=== PATIENT | male | born 1965 | race American Indian/Alaskan Native ===

== ENCOUNTER 2021-04-14 13:08 | Inpatient (IN) | payer MEDICAID ==
--- NOTE | 2021-04-15 09:08 | History and Physical Report ---
GP History & Physical - History of Present Illness Date of admission: 04/15/21 Date of Examination: 04/15/21 Reason for Admission: Danger to self Chief Complaint: Suicidal ideation History of Present Illness: Basim Pierce is a 55 year old male who was admitted on 1012 for suicidal ideation with a plan to be non compliant with mediations. In my interview with the patient is calm and oriented. The patient reports ongoing depression for the past 20 years. He states "I called them because I needed help, I have been on the streets and no where to go." The patient denies any current suicidal /homicidal ideation. He admits having auditory hallucinations stating " voices telling me to take my life." He denies visual hallucinations. PAST PSYCHIATRIC HISTORY Diagnoses:Schizophrenia, Depression Suicide attempts or Self-harm behavior: Denies Prior psychiatric hospitalizations: Yes Substance Abuse history:Alcohol and Cocaine Previous psychiatric medications tried: Unknown Outpatient treatment: Yes PAST MEDICAL HISTORY: HTN, CHF, CAD, Afib, DM Family Psychiatric History: None reported or documented SOCIAL HISTORY Marital Status: Single Living Arrangements:Homeless Employment Status: Unemployed Access to guns/weapons: None reported Education: 6th grade History of Abuse: Unknown Legal History: Denies REVIEW OF SYSTEMS Constitutional: Negative for weight loss ENT: Negative for stridor Respiratory: Negative for cough or hemoptysis All other systems reviewed and are negative MENTAL STATUS EXAMINATION General Appearance and Behavior: Age appropriate, good hygiene, wearing appropriate clothes, fair eye contact Cooperation: Participating/engaged Psychomotor Behavior: Psychomotor normal Mood: "Depressed" Affect and affective range: Congruent to stated mood Thought Process: goal Directed Thought Content: Not suicidal Speech: normal tone and pace Suicidal Ideation:Denies Homicidal Ideation: Denies Hallucinations: Auditory Impulse Control: Questionable Insight and Judgment: Limited insight and fair judgment Memory: Normal Attention: Normal Orientation: Alert and oriented Assessment and Plan (1) Schizophrenia-F20.9 Current Visit: Yes Status: Acute Treatment Plan Patient admitted for inpatient psychiatric evaluation, medication adjustment and close monitoring The patient's behavior, mood, sleep and appetite will be closely monitored. Patient enrolled in individual and group therapeutic sessions and encouraged to attend. Patient provided with a safe and structured environment. Patient's physical health needs will be addressed by the Hospitalist. Hospitalist Consulted Labs including CBC, CMP, Lipid profile and Hemoglobin A1C levels ordered for baseline reference Social Assessment will be completed and the Joinery Patternmaker will work with patient and family to ensure a suitable and safe disposition Medication adjustment will be made as clinically indicated Continued Home medications Usual Wellness Alevism/Preservation: - Start Trazodone 50 mg po QHS & 50 mg po QHS PRN between 10 PM & 2 AM for insomnia - Start Melatonin 5 mg po QHS to promote circadian rhythm The patient agreed on the treatment plan, understood the risk, benefit, alternative treatment, potential consequence of no treatment, and gave informed consent. Estimated days: 7 Post hospital care: primary care provider, psychiatric provider Case staffed with Dr. March Reaction to Hospitalization: Accepting Legal Status: Voluntary Medications and Allergies Allergies Allergy/AdvReac Type Severity Reaction Status Date / Time No Known Allergies Allergy Unverified 04/15/21 05:52 Home Medications Medication Instructions Recorded Confirmed Last Taken Type Amiodarone [Cordarone 200 MG TAB] 200 mg PO BID 04/15/21 04/15/21 Unknown History Apixaban [Eliquis] 5 mg PO BID 04/15/21 04/15/21 Unknown History Aspirin 81 mg PO DAILY 04/15/21 04/15/21 Unknown History AtorvaSTATin [Lipitor] 40 mg PO QHS 04/15/21 04/15/21 Unknown History Divalproex [Mukund BERNABE] 250 mg PO BID 04/15/21 04/15/21 Unknown History Escitalopram [Lexapro] 10 mg PO DAILY 04/15/21 04/15/21 Unknown History Famotidine [Acid-Pep] 20 mg PO DAILY 04/15/21 04/15/21 Unknown History Fenofibrate 54 mg PO DAILY 04/15/21 04/15/21 Unknown History Ferrous Sulfate [Feosol 325 MG tab] 325 mg PO DAILY 04/15/21 04/15/21 Unknown History Furosemide [Lasix] 20 mg PO QDAY 04/15/21 04/15/21 Unknown History Gabapentin 300 mg PO TID 04/15/21 04/15/21 Unknown History Lisinopril [Zestril] 5 mg PO DAILY 04/15/21 04/15/21 Unknown History Melatonin [Melatonin 10MG TAB] 10 mg PO HS 04/15/21 04/15/21 Unknown History Metoprolol [Lopressor TAB] 50 mg PO BID 04/15/21 04/15/21 Unknown History Quetiapine Fumarate [SEROquel] 50 mg PO HS 04/15/21 04/15/21 Unknown History Trazodone HCl 50 mg PO HS 04/15/21 04/15/21 Unknown History busPIRone [Buspar] 7.5 mg PO BID 04/15/21 04/15/21 Unknown History glipiZIDE [Glucotrol] 5 mg PO QDAY 04/15/21 04/15/21 Unknown History Results - Results Labs/Vitals: Laboratory Last Values POC Glucose 287 mg/dL (70-105) H 04/15/21 06:08 Last Vital Signs Temp 98.5 F 04/15/21 03:55 Pulse 57 L 04/15/21 03:55 Resp 16 04/15/21 03:55 BP 117/60 04/15/21 03:55 Pulse Ox 98 04/15/21 03:55 Physical Examination - Constitutional Vitals: Vital Signs Temp Pulse Resp BP Pulse Ox 98.5 F 57 L 16 117/60 98 04/15/21 03:55 04/15/21 03:55 04/15/21 03:55 04/15/21 03:55 04/15/21 03:55 Temperature -Last 24 Hours Temperature 98.5 F Mental Status Exam - Vital signs Last Vital Signs Temp 98.5 F 04/15/21 03:55 Pulse 57 L 04/15/21 03:55 Resp 16 04/15/21 03:55 BP 117/60 04/15/21 03:55 Pulse Ox 98 04/15/21 03:55 Physician Certification - Certification Statement Physician Certification Statement: This is an acknowledgement statement that BASIM PIERCE is a 55 year old M who requires inpatient psychiatric admission for treatment which could reasonably be expected to improve the patient's condition for Estimated period of time patient will need to remain in the hospital: [ ] Plan for post-hospital care: [ ]
[2021-04-15] MEDS ORDERED: glipiZIDE 5 MG TAB PO SCH (10:00)
[2021-04-15] MEDS ORDERED: FENOFIBRATE 120 MG PO SCH (10:00)
[2021-04-15] MEDS ORDERED: busPIRone 10 MG TAB PO SCH (10:00)
[2021-04-15] MEDS ORDERED: NON-FORMULARY EACH (Aspirin Tablet) PO SCH (10:00)
[2021-04-15] MEDS ORDERED: ESCITALOPRAM 10 MG TAB PO SCH (10:00)
[2021-04-15] MEDS ORDERED: NON-FORMULARY EACH (Apixaban 5 MG Tablet) PO SCH (10:00)
[2021-04-15] MEDS: FERROUS SULFATE 325 MG TAB PO SCH (14:35)
[2021-04-15] MEDS: FAMOTIDINE 20 MG TAB PO SCH (14:36)
[2021-04-15] MEDS: FUROSEMIDE 20 MG TAB PO SCH (14:36)
[2021-04-15] MEDS: DIVALPROEX DR 250 MG TAB PO SCH ×2 (14:36→21:53)
[2021-04-15] MEDS: LISINOPRIL 5 MG TAB PO SCH (14:37)
[2021-04-15] MEDS: METOPROLOL TARTRATE 50 MG TAB PO SCH ×2 (14:37→21:55)
[2021-04-15] MEDS: GABAPENTIN 300 MG CAP PO SCH ×2 (14:37→21:52)
[2021-04-15] MEDS: ASPIRIN 81 MG TAB CHEW PO SCH (14:37)
[2021-04-15] MEDS: AMIODARONE 200 MG TAB PO SCH ×2 (14:38→21:53)
[2021-04-15] MEDS: INSULIN LISPRO 100 UNIT/ML SUB-Q SCH ×3 (14:40→22:32)
[2021-04-15 14:41] LABS: Alanine Aminotransferase 28 units/L (7-56); Albumin 4.1 g/dL (3.9-5); BUN/Creatinine Ratio 18; Blood Urea Nitrogen 30 mg/dL (9-20); Calcium 9.4 mg/dL (8.4-10.2); Chol/HDL Ratio 3.79 %; HDL Cholesterol 43 mg/dL (40-59); Hemolysis Index 2; LDL Cholesterol,Direct 104 mg/dL (50-130)
[2021-04-15 14:45] LABS: Hepatitis C Virus Antibody Non-Reactive (NonReactive)
[2021-04-15 14:48] LABS: Hepatitis B Surface Antigen Nonreactive (Negative)
[2021-04-15] MEDS: APIXABAN 5 MG TAB PO SCH ×2 (14:52→21:53)
[2021-04-15 15:04] LABS: Basophils % (Auto) 0.8 % (0.0-1.8); Eosinophils # (Auto) 0.3 K/mm3 (0.0-0.4); Eosinophils % (Auto) 8.7 % (0.0-4.3); Hematocrit 34.8 % (35.5-45.6); Hemoglobin 11.5 gm/dl (11.8-15.2); Lymphocytes # (Auto) 1.2 K/mm3 (1.2-5.4); Lymphocytes % (Auto) 30.4 % (13.4-35.0); Mean Corpuscular HGB Conc 33 % (32-34); Mean Corpuscular Volume 90 fl (84-94); Monocytes # (Auto) 0.5 K/mm3 (0.0-0.8); Monocytes % (Auto) 12.7 % (0.0-7.3); Platelet Count 150 K/mm3 (140-440); Red Blood Count 3.87 M/mm3 (3.65-5.03); Red Cell Distribution Width 16.1 % (13.2-15.2)
--- NOTE | 2021-04-15 18:44 | Consultation ---
History of Present Illness - Reason for Consult Consult date: 04/15/21 Medical consult Requesting physician: FILOMENA VEGA - History of Present Illness 55-year-old male patient was admitted to [facility] with history of suicidal ideation and thoughts and hallucination further evaluation and management, patient has significant past medical history of congestive heart failure atrial flutter, hypertension, hyperlipidemia, diabetes mellitus, coronary artery disease, nonischemic cardiomyopathy, polysubstance abuse, hospitalist service was requested for medical consult. At the time of my evaluation patient was in the activity room alert awake cheerful not in acute distress patient denies any chest pain or shortness of breath complains of some back pain gives history of back surgery Denies nausea vomiting or abdominal pain Past History Past Medical History: atrial fib, CAD, diabetes, heart failure, hypertension, hyperlipidemia, other (Depression, cardiomyopathy) Past Surgical History: Other (Ablation, back surgery, cardiac catheterization, cardioversion, colonoscopy, EGD) Social history: smoking, alcohol abuse, other (Cocaine abuse) Family history: no significant family history Medications and Allergies Allergies Allergy/AdvReac Type Severity Reaction Status Date / Time No Known Allergies Allergy Unverified 04/15/21 05:52 Home Medications Medication Instructions Recorded Confirmed Last Taken Type Amiodarone [Cordarone 200 MG TAB] 200 mg PO BID 04/15/21 04/15/21 Unknown History Apixaban [Eliquis] 5 mg PO BID 04/15/21 04/15/21 Unknown History Aspirin 81 mg PO DAILY 04/15/21 04/15/21 Unknown History AtorvaSTATin [Lipitor] 40 mg PO QHS 04/15/21 04/15/21 Unknown History Divalproex [Mukund BERNABE] 250 mg PO BID 04/15/21 04/15/21 Unknown History Escitalopram [Lexapro] 10 mg PO DAILY 04/15/21 04/15/21 Unknown History Famotidine [Acid-Pep] 20 mg PO DAILY 04/15/21 04/15/21 Unknown History Fenofibrate 54 mg PO DAILY 04/15/21 04/15/21 Unknown History Ferrous Sulfate [Feosol 325 MG tab] 325 mg PO DAILY 04/15/21 04/15/21 Unknown History Furosemide [Lasix] 20 mg PO QDAY 04/15/21 04/15/21 Unknown History Gabapentin 300 mg PO TID 04/15/21 04/15/21 Unknown History Lisinopril [Zestril] 5 mg PO DAILY 04/15/21 04/15/21 Unknown History Melatonin [Melatonin 10MG TAB] 10 mg PO HS 04/15/21 04/15/21 Unknown History Metoprolol [Lopressor TAB] 50 mg PO BID 04/15/21 04/15/21 Unknown History Quetiapine Fumarate [SEROquel] 50 mg PO HS 04/15/21 04/15/21 Unknown History Trazodone HCl 50 mg PO HS 04/15/21 04/15/21 Unknown History busPIRone [Buspar] 7.5 mg PO BID 04/15/21 04/15/21 Unknown History glipiZIDE [Glucotrol] 5 mg PO QDAY 04/15/21 04/15/21 Unknown History Active Meds: Active Medications Amiodarone HCl (Amiodarone 200 Mg Tab) 200 mg PO BID [facility] Last Admin: 04/15/21 14:38 Dose: 200 mg Documented by: Apixaban (Apixaban 5 Mg Tab) 5 mg PO Q12HR [facility]; Protocol Last Admin: 04/15/21 14:52 Dose: 5 mg Documented by: Aspirin (Aspirin 81 Mg Tab Chew) 81 mg PO QDAY [facility] Last Admin: 04/15/21 14:37 Dose: 81 mg Documented by: Atorvastatin Calcium (Atorvastatin 40 Mg Tab) 40 mg PO QHS [facility] Buspirone HCl (Buspirone 10 Mg Tab) 7.5 mg PO BID [facility] Last Admin: 04/15/21 14:36 Dose: 7.5 mg Documented by: Divalproex Sodium (Divalproex Dr 250 Mg Tab) 250 mg PO BID [facility] Last Admin: 04/15/21 14:36 Dose: 250 mg Documented by: Escitalopram Oxalate (Escitalopram 10 Mg Tab) 10 mg PO DAILY [facility] Last Admin: 04/15/21 14:35 Dose: 10 mg Documented by: Famotidine (Famotidine 20 Mg Tab) 20 mg PO DAILY [facility] Last Admin: 04/15/21 14:36 Dose: 20 mg Documented by: Ferrous Sulfate (Ferrous Sulfate 325 Mg Tab) 325 mg PO DAILY [facility] Last Admin: 04/15/21 14:35 Dose: 325 mg Documented by: Furosemide (Furosemide 20 Mg Tab) 20 mg PO QDAY [facility] Last Admin: 04/15/21 14:36 Dose: 20 mg Documented by: Gabapentin (Gabapentin 300 Mg Cap) 300 mg PO TID [facility] Last Admin: 04/15/21 14:37 Dose: 300 mg Documented by: Glipizide (Glipizide 5 Mg Tab) 5 mg PO QDAY [facility] Last Admin: 04/15/21 14:39 Dose: 5 mg Documented by: Insulin Human Lispro (Insulin Lispro 100 Unit/Ml) 0 unit SUB-Q ACHS [facility]; Protocol Last Admin: 04/15/21 18:05 Dose: 8 unit Documented by: Lisinopril (Lisinopril 5 Mg Tab) 5 mg PO DAILY [facility] Last Admin: 04/15/21 14:37 Dose: 5 mg Documented by: Melatonin (Melatonin 5 Mg Tab) 10 mg PO QHS [facility] Metoprolol Tartrate (Metoprolol Tartrate 50 Mg Tab) 50 mg PO BID [facility] Last Admin: 04/15/21 14:37 Dose: 50 mg Documented by: Miscellaneous Medication (Fenofibrate [Fenofibrate]) 54 mg PO DAILY [facility] Miscellaneous Medication (Quetiapine Fumarate [Seroquel]) 50 mg PO HS [facility] Quetiapine Fumarate (Quetiapine 25 Mg Tab) 50 mg PO QHS [facility] Trazodone HCl (Trazodone 50 Mg Tab) 50 mg PO HS [facility] Review of Systems Constitutional: weakness, no weight loss, no weight gain Ears, nose, mouth and throat: no nasal congestion, no nasal discharge Cardiovascular: no chest pain, no palpitations, no shortness of breath Respiratory: no cough, no shortness of breath Gastrointestinal: no abdominal pain, no nausea, no vomiting (Test MRI ADL portending any but if ECRL you can you can order it medical check a left carotid Doppler) Genitourinary Male: no hematuria, no flank pain Musculoskeletal: myalgias, no arthritis Integumentary: no rash, no lesions Neurological: weakness, no seizures, no syncope, no tremors Psychiatric: hallucinations, depression, other (Suicidal threats and suicidal ideation) Endocrine: other, no cold intolerance, no heat intolerance Hematologic/Lymphatic: no easy bruising, no easy bleeding Allergic/Immunologic: no urticaria, no allergic rhinitis Exam - Constitutional Vitals: Temp Pulse Resp BP Pulse Ox 97.5 F L 63 18 174/59 99 04/15/21 10:06 04/15/21 14:37 04/15/21 10:06 04/15/21 14:37 04/15/21 14:30 General appearance: Present: no acute distress, well-nourished - EENT Eyes: Present: PERRL, EOM intact - Neck Neck: Present: supple, normal ROM - Respiratory Respiratory effort: normal Respiratory: bilateral: diminished, negative: rales, rhonchi, wheezing - Cardiovascular Rhythm: regular Heart Sounds: Present: S1 & S2 - Extremities Extremities: no ischemia, No edema - Abdominal General gastrointestinal: Present: soft, non-tender, non-distended, normal bowel sounds - Integumentary Integumentary: Present: clear, warm - Musculoskeletal Musculoskeletal: strength equal bilaterally - Psychiatric Psychiatric: appropriate mood/affect, cooperative - Neurologic Neurologic: moves all extremities Results - Labs CBC & Chem 7: 04/15/21 13:44 04/15/21 13:46 Labs: Abnormal lab results 04/15/21 04/15/21 04/15/21 Range/Units 06:08 11:21 13:44 WBC 3.8 L (4.5-11.0) K/mm3 Hgb 11.5 L (11.8-15.2) gm/dl Hct 34.8 L (35.5-45.6) % RDW 16.1 H (13.2-15.2) % [place] % (Auto) 12.7 H (0.0-7.3) % Eos % (Auto) 8.7 H (0.0-4.3) % Sodium (137-145) mmol/L Potassium (3.6-5.0) mmol/L BUN (9-20) mg/dL Creatinine (0.8-1.3) mg/dL Glucose (75-100) mg/dL POC Glucose 287 H 325 H (70-105) mg/dL Hemoglobin A1c (4-6) % Triglycerides (2-149) mg/dL 04/15/21 04/15/21 04/15/21 Range/Units 13:46 13:46 16:09 WBC (4.5-11.0) K/mm3 Hgb (11.8-15.2) gm/dl Hct (35.5-45.6) % RDW (13.2-15.2) % [place] % (Auto) (0.0-7.3) % Eos % (Auto) (0.0-4.3) % Sodium 135 L (137-145) mmol/L Potassium 5.9 H (3.6-5.0) mmol/L BUN 30 H (9-20) mg/dL Creatinine 1.7 H (0.8-1.3) mg/dL Glucose 348 H (75-100) mg/dL POC Glucose 365 H (70-105) mg/dL Hemoglobin A1c 9.2 H (4-6) % Triglycerides 154 H (2-149) mg/dL Assessment and Plan --Hyperkalemia; Kayexalate, calcium gluconate --Congestive heart failure; Resume home antifailure medications Supportive care --Hypertension; moderate control Continue current antihypertensives and as needed hydralazine --History of coronary artery disease; Continue cardiac medications --History of atrial flutter Continue Eliquis and metoprolol --History of dyslipidemia; Low-cholesterol diet and lipid-lowering medications --Diabetes mellitus; Accu-Chek sliding scale coverage ADA diet Glipizide and insulin as needed --Diabetic neuropathy; Continue gabapentin --DVT prophylaxis SCDs while resting Ambulate as tolerated We will closely monitor the patient and adjust management as needed Plan of care reviewed with the patient and his nurse Thank you for this consultation we will follow the patient along with you call us with questions
[2021-04-15] MEDS ORDERED: hydrALAZINE 10 MG TAB PO PRN (20:07)
[2021-04-15] MEDS ORDERED: SODIUM POLYSTYRENE 15 GM/60 ML ORAL LIQD PO ONE (20:17)
[2021-04-15] MEDS: traZODone 50 MG TAB PO SCH (21:53)
[2021-04-15] MEDS: MELATONIN 5 MG TAB PO SCH (21:53)
[2021-04-15] MEDS: QUEtiapine 25 MG TAB PO SCH (21:53)
[2021-04-15] MEDS: busPIRone 5 MG TAB PO SCH (21:54)
[2021-04-15] MEDS: glipiZIDE 5 MG TAB PO SCH (21:54)
[2021-04-15] MEDS: hydrALAZINE 10 MG TAB PO SCH (21:54)
[2021-04-15] MEDS ORDERED: NON-FORMULARY EACH (Quetiapine Fumarate [Seroquel] 50 MG Tablet) PO SCH (22:00)
[2021-04-15] MEDS ORDERED: NON-FORMULARY EACH (Melatonin [Melatonin 10mg Tab] 10 MG Tablet) PO SCH (22:00)
[2021-04-15] MEDS: NON-FORMULARY EACH (Quetiapine Fumarate [Seroquel] 50 MG Tablet) PO SCH (22:01)
[2021-04-16 00:34] LABS: INR 0.96 (0.87-1.13)
[2021-04-16 00:35] LABS: Partial Thromboplastin Time 26.7 Sec. (24.2-36.6)
[2021-04-16] MEDS: hydrALAZINE 10 MG TAB PO SCH ×4 (06:06→21:46)
[2021-04-16] MEDS: INSULIN LISPRO 100 UNIT/ML SUB-Q SCH ×4 (07:33→22:53)
[2021-04-16] MEDS: GABAPENTIN 300 MG CAP PO SCH ×3 (07:34→21:45)
--- NOTE | 2021-04-16 09:16 | Progress Note ---
Subjective Date of service: 04/16/21 Principal diagnosis: schizophrenia Subjective Comment: The patient was seen today. He endorsed suicidal thoughts with a plan to overdose on insulin. He says he is depressed and sees no way out. He says he is homeless and doesn't want to be back on the streets. The patient says he was in a [facility] then they tried to put him in a [facility]. He says he left. Ge denies hallucinations. REVIEW OF SYSTEMS Constitutional: Negative for weight loss ENT: Negative for stridor Respiratory: Negative for cough or hemoptysis All other systems reviewed and are negative MENTAL STATUS EXAMINATION General Appearance and Behavior: Age appropriate, good hygiene, wearing appropriate clothes, fair eye contact Cooperation: Participating/engaged Psychomotor Behavior: Psychomotor normal Mood: "Depressed" Affect and affective range: Congruent to stated mood Thought Process: goal Directed Thought Content: SI, hopelessness Speech: normal tone and pace Suicidal Ideation: Yes Homicidal Ideation: Denies Hallucinations: Denies Impulse Control: Questionable Insight and Judgment: Limited insight and fair judgment Memory: Normal Attention: Normal Orientation: Alert and oriented Assessment and Plan (1) [id number] Current Visit: Yes Status: Acute Treatment Plan Patient admitted for inpatient psychiatric evaluation, medication adjustment and close monitoring The patient's behavior, mood, sleep and appetite will be closely monitored. Patient enrolled in individual and group therapeutic sessions and encouraged to attend. Patient provided with a safe and structured environment. Patient's physical health needs will be addressed by the Hospitalist. Hospitalist Consulted Labs including CBC, CMP, Lipid profile and Hemoglobin A1C levels ordered for baseline reference Social Assessment will be completed and the Grocery Store Associate will work with patient and family to ensure a suitable and safe disposition Medication adjustment will be made as clinically indicated Increased Lexapro 20mg po daily Usual Wellness Faith/Preservation: - Start Trazodone 50 mg po QHS & 50 mg po QHS PRN between 10 PM & 2 AM for insomnia - Start Melatonin 5 mg po QHS to promote circadian rhythm The patient agreed on the treatment plan, understood the risk, benefit, alternative treatment, potential consequence of no treatment, and gave informed consent. Estimated days: 6 Post hospital care: primary care provider, psychiatric provider Case staffed with Dr. March Medications and Allergies Allergies Allergy/AdvReac Type Severity Reaction Status Date / Time No Known Allergies Allergy Unverified 04/15/21 05:52 Home Medications Medication Instructions Recorded Confirmed Last Taken Type Amiodarone [Cordarone 200 MG TAB] 200 mg PO BID 04/15/21 04/15/21 Unknown History Apixaban [Eliquis] 5 mg PO BID 04/15/21 04/15/21 Unknown History Aspirin 81 mg PO DAILY 04/15/21 04/15/21 Unknown History AtorvaSTATin [Lipitor] 40 mg PO QHS 04/15/21 04/15/21 Unknown History Divalproex [Mukund BERNABE] 250 mg PO BID 04/15/21 04/15/21 Unknown History Escitalopram [Lexapro] 10 mg PO DAILY 04/15/21 04/15/21 Unknown History Famotidine [Acid-Pep] 20 mg PO DAILY 04/15/21 04/15/21 Unknown History Fenofibrate 54 mg PO DAILY 04/15/21 04/15/21 Unknown History Ferrous Sulfate [Feosol 325 MG tab] 325 mg PO DAILY 04/15/21 04/15/21 Unknown History Furosemide [Lasix] 20 mg PO QDAY 04/15/21 04/15/21 Unknown History Gabapentin 300 mg PO TID 04/15/21 04/15/21 Unknown History Lisinopril [Zestril] 5 mg PO DAILY 04/15/21 04/15/21 Unknown History Melatonin [Melatonin 10MG TAB] 10 mg PO HS 04/15/21 04/15/21 Unknown History Metoprolol [Lopressor TAB] 50 mg PO BID 04/15/21 04/15/21 Unknown History Quetiapine Fumarate [SEROquel] 50 mg PO HS 04/15/21 04/15/21 Unknown History Trazodone HCl 50 mg PO HS 04/15/21 04/15/21 Unknown History busPIRone [Buspar] 7.5 mg PO BID 04/15/21 04/15/21 Unknown History glipiZIDE [Glucotrol] 5 mg PO QDAY 04/15/21 04/15/21 Unknown History Active Meds: Active Medications Amiodarone HCl (Amiodarone 200 Mg Tab) 200 mg PO BID COUNTS INCLUDE 234 BEDS AT THE [facility] Last Admin: 04/15/21 21:53 Dose: 200 mg Documented by: Apixaban (Apixaban 5 Mg Tab) 5 mg PO Q12HR MIC; Protocol Last Admin: 04/15/21 21:53 Dose: 5 mg Documented by: Aspirin (Aspirin 81 Mg Tab Chew) 81 mg PO QDAY COUNTS INCLUDE 234 BEDS AT THE [facility] Last Admin: 04/15/21 14:37 Dose: 81 mg Documented by: Atorvastatin Calcium (Atorvastatin 40 Mg Tab) 40 mg PO QHS COUNTS INCLUDE 234 BEDS AT THE [facility] Last Admin: 04/15/21 21:53 Dose: 40 mg Documented by: Buspirone HCl (Buspirone 5 Mg Tab) 7.5 mg PO BID COUNTS INCLUDE 234 BEDS AT [facility] Last Admin: 04/15/21 21:54 Dose: 7.5 mg Documented by: Divalproex Sodium (Divalproex Dr 250 Mg Tab) 250 mg PO BID COUNTS INCLUDE 234 BEDS AT [facility] Last Admin: 04/15/21 21:53 Dose: 250 mg Documented by: Escitalopram Oxalate (Escitalopram 10 Mg Tab) 10 mg PO DAILY COUNTS INCLUDE 234 BEDS AT [facility] Last Admin: 04/15/21 14:35 Dose: 10 mg Documented by: Famotidine (Famotidine 20 Mg Tab) 20 mg PO DAILY COUNTS INCLUDE 234 BEDS AT [facility] Last Admin: 04/15/21 14:36 Dose: 20 mg Documented by: Fenofibrate (Fenofibrate 48 Mg Tab) 48 mg PO DAILY COUNTS INCLUDE 234 BEDS AT [facility] Ferrous Sulfate (Ferrous Sulfate 325 Mg Tab) 325 mg PO DAILY COUNTS INCLUDE 234 BEDS AT THE [facility] Last Admin: 04/15/21 14:35 Dose: 325 mg Documented by: Furosemide (Furosemide 20 Mg Tab) 20 mg PO QDAY COUNTS INCLUDE 234 BEDS AT [facility] Last Admin: 04/15/21 14:36 Dose: 20 mg Documented by: Gabapentin (Gabapentin 300 Mg Cap) 300 mg PO TID COUNTS INCLUDE 234 BEDS AT [facility] Last Admin: 04/16/21 07:34 Dose: 300 mg Documented by: Glipizide (Glipizide 5 Mg Tab) 5 mg PO BID COUNTS INCLUDE 234 BEDS AT [facility] Last Admin: 04/15/21 21:54 Dose: 5 mg Documented by: Hydralazine HCl (Hydralazine 10 Mg Tab) 10 mg PO Q8HR COUNTS INCLUDE 234 BEDS AT [facility] Last Admin: 04/16/21 06:22 Dose: 10 mg Documented by: Hydralazine HCl (Hydralazine 10 Mg Tab) 10 mg PO Q4H PRN PRN Reason: Hypertension Insulin Human Lispro (Insulin Lispro 100 Unit/Ml) 0 unit SUB-Q ACHS COUNTS INCLUDE 234 BEDS AT THE [facility]; Protocol Last Admin: 04/16/21 07:33 Dose: 3 unit Documented by: Lisinopril (Lisinopril 5 Mg Tab) 5 mg PO DAILY COUNTS INCLUDE 234 BEDS AT [facility] Last Admin: 04/15/21 14:37 Dose: 5 mg Documented by: Melatonin (Melatonin 5 Mg Tab) 10 mg PO QHS COUNTS INCLUDE 234 BEDS AT [facility] Last Admin: 04/15/21 21:53 Dose: 10 mg Documented by: Metoprolol Tartrate (Metoprolol Tartrate 50 Mg Tab) 50 mg PO BID COUNTS INCLUDE 234 BEDS AT [facility] Last Admin: 04/15/21 21:55 Dose: 50 mg Documented by: Miscellaneous Medication (Quetiapine Fumarate [Seroquel]) 50 mg PO [facility] Last Admin: 04/15/21 22:01 Dose: Not Given Documented by: Quetiapine Fumarate (Quetiapine 25 Mg Tab) 50 mg PO QHS COUNTS INCLUDE 234 BEDS AT [facility] Last Admin: 04/15/21 21:53 Dose: 50 mg Documented by: Sodium Polystyrene Sulfonate (Sodium Polystyrene 15 Gm/60 Ml Oral Liqd) 30 gm PO ONCE ONE Stop: 04/16/21 10:01 Trazodone HCl (Trazodone 50 Mg Tab) 50 mg PO [facility] Last Admin: 04/15/21 21:53 Dose: 50 mg Documented by: Results - Results Labs/Vitals: Laboratory Last Values WBC 3.8 K/mm3 (4.5-11.0) L 04/15/21 13:44 RBC 3.87 M/mm3 (3.65-5.03) 04/15/21 13:44 Hgb 11.5 gm/dl (11.8-15.2) L 04/15/21 13:44 Hct 34.8 % (35.5-45.6) L 04/15/21 13:44 MCV 90 fl (84-94) 04/15/21 13:44 MCH 30 pg (28-32) 04/15/21 13:44 MCHC 33 % (32-34) 04/15/21 13:44 RDW 16.1 % (13.2-15.2) H 04/15/21 13:44 Plt Count 150 K/mm3 (140-440) 04/15/21 13:44 Lymph % (Auto) 30.4 % (13.4-35.0) 04/15/21 13:44 [place] % (Auto) 12.7 % (0.0-7.3) H 04/15/21 13:44 Eos % (Auto) 8.7 % (0.0-4.3) H 04/15/21 13:44 Baso % (Auto) 0.8 % (0.0-1.8) 04/15/21 13:44 Lymph # (Auto) 1.2 K/mm3 (1.2-5.4) 04/15/21 13:44 [place] # (Auto) 0.5 K/mm3 (0.0-0.8) 04/15/21 13:44 Eos # (Auto) 0.3 K/mm3 (0.0-0.4) 04/15/21 13:44 Baso # (Auto) 0.0 K/mm3 (0.0-0.1) 04/15/21 13:44 Seg Neutrophils % 47.4 % (40.0-70.0) 04/15/21 13:44 Seg Neutrophils # 1.8 K/mm3 (1.8-7.7) 04/15/21 13:44 PT 13.3 Sec. (12.2-14.9) 04/15/21 23:45 INR 0.96 (0.87-1.13) 04/15/21 23:45 APTT 26.7 Sec. (24.2-36.6) 04/15/21 23:45 Sodium 135 mmol/L (137-145) L 04/15/21 13:46 Potassium 5.9 mmol/L (3.6-5.0) H 04/15/21 13:46 Chloride 99.9 mmol/L (98-107) 04/15/21 13:46 Carbon Dioxide 26 mmol/L (22-30) 04/15/21 13:46 Anion Gap 15 mmol/L 04/15/21 13:46 BUN 30 mg/dL (9-20) H 04/15/21 13:46 Creatinine 1.8 mg/dL (0.8-1.3) H 04/15/21 23:45 Estimated GFR 47 ml/min 04/15/21 23:45 BUN/Creatinine Ratio 18 % 04/15/21 13:46 Glucose 348 mg/dL (75-100) H 04/15/21 13:46 POC Glucose 232 mg/dL (70-105) H 04/16/21 06:31 Hemoglobin A1c 9.2 % (4-6) H 04/15/21 13:46 Calcium 9.4 mg/dL (8.4-10.2) 04/15/21 13:46 Total Bilirubin < 0.20 mg/dL (0.1-1.2) 04/15/21 13:46 AST 16 units/L (5-40) 04/15/21 13:46 ALT 28 units/L (7-56) 04/15/21 13:46 Alkaline Phosphatase 104 units/L (35-129) 04/15/21 13:46 Total Protein 7.5 g/dL (6.3-8.2) 04/15/21 13:46 Albumin 4.1 g/dL (3.9-5) 04/15/21 13:46 Albumin/Globulin Ratio 1.2 % 04/15/21 13:46 Triglycerides 154 mg/dL (2-149) H 04/15/21 13:46 Cholesterol 163 mg/dL (50-199) 04/15/21 13:46 LDL Cholesterol Direct 104 mg/dL (50-130) 04/15/21 13:46 HDL Cholesterol 43 mg/dL (40-59) 04/15/21 13:46 Cholesterol/HDL Ratio 3.79 % 04/15/21 13:46 TSH 1.370 mlU/mL (0.270-4.200) 04/15/21 13:46 Hepatitis A IgM Ab Non-reactive (NonReactive) 04/15/21 13:46 Hep Bs Antigen Nonreactive (Negative) 04/15/21 13:46 Hep B Core IgM Ab Non-reactive (NonReactive) 04/15/21 13:46 Hepatitis C Antibody Non-reactive (NonReactive) 04/15/21 13:46 Last Vital Signs Temp 98.6 F 04/16/21 06:05 Pulse 59 L 04/16/21 06:22 Resp 18 04/16/21 06:05 BP 130/59 04/16/21 06:22 Pulse Ox 97 04/16/21 06:05
[2021-04-16] MEDS ORDERED: SODIUM POLYSTYRENE 15 GM/60 ML ORAL LIQD PO ONE (10:00)
[2021-04-16] MEDS: busPIRone 5 MG TAB PO SCH ×2 (10:15→21:48)
[2021-04-16] MEDS: ASPIRIN 81 MG TAB CHEW PO SCH (10:15)
[2021-04-16] MEDS: APIXABAN 5 MG TAB PO SCH ×2 (10:18→21:49)
[2021-04-16] MEDS: AMIODARONE 200 MG TAB PO SCH ×2 (10:18→21:50)
[2021-04-16] MEDS: DIVALPROEX DR 250 MG TAB PO SCH ×2 (10:18→21:46)
[2021-04-16] MEDS: FERROUS SULFATE 325 MG TAB PO SCH (10:19)
[2021-04-16] MEDS: FUROSEMIDE 20 MG TAB PO SCH (10:20)
[2021-04-16] MEDS: ESCITALOPRAM 10 MG TAB PO SCH (10:21)
[2021-04-16] MEDS: METOPROLOL TARTRATE 50 MG TAB PO SCH ×2 (10:22→22:01)
[2021-04-16] MEDS: FAMOTIDINE 20 MG TAB PO SCH (10:23)
[2021-04-16] MEDS: LISINOPRIL 5 MG TAB PO SCH (10:24)
[2021-04-16] MEDS: FENOFIBRATE 48 MG TAB PO SCH (10:24)
[2021-04-16] MEDS: glipiZIDE 5 MG TAB PO SCH ×2 (10:56→21:50)
[2021-04-16] MEDS: MELATONIN 5 MG TAB PO SCH (21:49)
[2021-04-16] MEDS: QUEtiapine 25 MG TAB PO SCH (22:00)
[2021-04-16] MEDS: traZODone 50 MG TAB PO SCH (22:01)
[2021-04-16] MEDS: NON-FORMULARY EACH (Quetiapine Fumarate [Seroquel] 50 MG Tablet) PO SCH (22:11)
[2021-04-17] MEDS: INSULIN LISPRO 100 UNIT/ML SUB-Q SCH ×4 (08:15→22:26)
--- NOTE | 2021-04-17 10:19 | Progress Note ---
Subjective Date of service: 04/17/21 Principal diagnosis: schizophrenia Subjective Comment: The patient was seen today. The patient states he is not doing too good. He says he is having chronic back pain. He also says he is depressed. He endorses suicidal thoughts with no plan. REVIEW OF SYSTEMS Constitutional: Negative for weight loss ENT: Negative for stridor Respiratory: Negative for cough or hemoptysis All other systems reviewed and are negative MENTAL STATUS EXAMINATION General Appearance and Behavior: Age appropriate, good hygiene, wearing appropriate clothes, fair eye contact Cooperation: Participating/engaged Psychomotor Behavior: Psychomotor normal Mood: "Depressed" Affect and affective range: Congruent to stated mood Thought Process: goal Directed Thought Content: SI, hopelessness Speech: normal tone and pace Suicidal Ideation: Yes Homicidal Ideation: Denies Hallucinations: Denies Impulse Control: Questionable Insight and Judgment: Limited insight and fair judgment Memory: Normal Attention: Normal Orientation: Alert and oriented Assessment and Plan (1) Schizophrenia-F20.9 Current Visit: Yes Status: Acute Treatment Plan Patient admitted for inpatient psychiatric evaluation, medication adjustment and close monitoring The patient's behavior, mood, sleep and appetite will be closely monitored. Patient enrolled in individual and group therapeutic sessions and encouraged to attend. Patient provided with a safe and structured environment. Patient's physical health needs will be addressed by the Hospitalist. Hospitalist Consulted Labs including CBC, CMP, Lipid profile and Hemoglobin A1C levels ordered for baseline reference Social Assessment will be completed and the Labor Representative will work with patient and family to ensure a suitable and safe disposition Medication adjustment will be made as clinically indicated Increased Lexapro 20mg po daily yesterday No changes today Usual Wellness Anabaptist/Preservation: - Start Trazodone 50 mg po QHS & 50 mg po QHS PRN between 10 PM & 2 AM for insomnia - Start Melatonin 5 mg po QHS to promote circadian rhythm The patient agreed on the treatment plan, understood the risk, benefit, alternative treatment, potential consequence of no treatment, and gave informed consent. Estimated days: 5 Post hospital care: primary care provider, psychiatric provider Case staffed with Dr. March Medications and Allergies Allergies Allergy/AdvReac Type Severity Reaction Status Date / Time No Known Allergies Allergy Unverified 04/15/21 05:52 Home Medications Medication Instructions Recorded Confirmed Last Taken Type Amiodarone [Cordarone 200 MG TAB] 200 mg PO BID 04/15/21 04/15/21 Unknown History Apixaban [Eliquis] 5 mg PO BID 04/15/21 04/15/21 Unknown History Aspirin 81 mg PO DAILY 04/15/21 04/15/21 Unknown History AtorvaSTATin [Lipitor] 40 mg PO QHS 04/15/21 04/15/21 Unknown History Divalproex [Mukund BERNABE] 250 mg PO BID 04/15/21 04/15/21 Unknown History Escitalopram [Lexapro] 10 mg PO DAILY 04/15/21 04/15/21 Unknown History Famotidine [Acid-Pep] 20 mg PO DAILY 04/15/21 04/15/21 Unknown History Fenofibrate 54 mg PO DAILY 04/15/21 04/15/21 Unknown History Ferrous Sulfate [Feosol 325 MG tab] 325 mg PO DAILY 04/15/21 04/15/21 Unknown History Furosemide [Lasix] 20 mg PO QDAY 04/15/21 04/15/21 Unknown History Gabapentin 300 mg PO TID 04/15/21 04/15/21 Unknown History Lisinopril [Zestril] 5 mg PO DAILY 04/15/21 04/15/21 Unknown History Melatonin [Melatonin 10MG TAB] 10 mg PO HS 04/15/21 04/15/21 Unknown History Metoprolol [Lopressor TAB] 50 mg PO BID 04/15/21 04/15/21 Unknown History Quetiapine Fumarate [SEROquel] 50 mg PO HS 04/15/21 04/15/21 Unknown History Trazodone HCl 50 mg PO HS 04/15/21 04/15/21 Unknown History busPIRone [Buspar] 7.5 mg PO BID 04/15/21 04/15/21 Unknown History glipiZIDE [Glucotrol] 5 mg PO QDAY 04/15/21 04/15/21 Unknown History Active Meds: Active Medications Amiodarone HCl (Amiodarone 200 Mg Tab) 200 mg PO BID [facility] Last Admin: 04/16/21 21:50 Dose: 200 mg Documented by: Apixaban (Apixaban 5 Mg Tab) 5 mg PO Q12HR [facility]; Protocol Last Admin: 04/16/21 21:49 Dose: 5 mg Documented by: Aspirin (Aspirin 81 Mg Tab Chew) 81 mg PO QDAY [facility] Last Admin: 04/16/21 10:15 Dose: 81 mg Documented by: Atorvastatin Calcium (Atorvastatin 40 Mg Tab) 40 mg PO QHS [facility] Last Admin: 04/16/21 21:49 Dose: 40 mg Documented by: Buspirone HCl (Buspirone 5 Mg Tab) 7.5 mg PO BID [facility] Last Admin: 04/16/21 21:48 Dose: 7.5 mg Documented by: Divalproex Sodium (Divalproex Dr 250 Mg Tab) 250 mg PO BID [facility] Last Admin: 04/16/21 21:46 Dose: 250 mg Documented by: Escitalopram Oxalate (Escitalopram 10 Mg Tab) 20 mg PO QDAY [facility] Last Admin: 04/16/21 10:21 Dose: 20 mg Documented by: Famotidine (Famotidine 20 Mg Tab) 20 mg PO DAILY [facility] Last Admin: 04/16/21 10:23 Dose: 20 mg Documented by: Fenofibrate (Fenofibrate 48 Mg Tab) 48 mg PO DAILY [facility] Last Admin: 04/16/21 10:24 Dose: 48 mg Documented by: Ferrous Sulfate (Ferrous Sulfate 325 Mg Tab) 325 mg PO DAILY [facility] Last Admin: 04/16/21 10:19 Dose: 325 mg Documented by: Furosemide (Furosemide 20 Mg Tab) 20 mg PO QDAY [facility] Last Admin: 04/16/21 10:20 Dose: 20 mg Documented by: Gabapentin (Gabapentin 300 Mg Cap) 300 mg PO TID [facility] Last Admin: 04/16/21 21:45 Dose: 300 mg Documented by: Glipizide (Glipizide 5 Mg Tab) 5 mg PO BID [facility] Last Admin: 04/16/21 21:50 Dose: 5 mg Documented by: Hydralazine HCl (Hydralazine 10 Mg Tab) 10 mg PO Q8HR [facility] Last Admin: 04/16/21 21:46 Dose: 10 mg Documented by: Hydralazine HCl (Hydralazine 10 Mg Tab) 10 mg PO Q4H PRN PRN Reason: Hypertension Insulin Human Lispro (Insulin Lispro 100 Unit/Ml) 0 unit SUB-Q ACHS [facility]; Protocol Last Admin: 04/16/21 22:53 Dose: 6 unit Documented by: Lisinopril (Lisinopril 5 Mg Tab) 5 mg PO DAILY [facility] Last Admin: 04/16/21 10:24 Dose: 5 mg Documented by: Melatonin (Melatonin 5 Mg Tab) 10 mg PO QHS [facility] Last Admin: 04/16/21 21:49 Dose: 10 mg Documented by: Metoprolol Tartrate (Metoprolol Tartrate 50 Mg Tab) 50 mg PO BID [facility] Last Admin: 04/16/21 22:01 Dose: 50 mg Documented by: Miscellaneous Medication (Quetiapine Fumarate [Seroquel]) 50 mg PO [facility] Last Admin: 04/16/21 22:11 Dose: Not Given Documented by: Quetiapine Fumarate (Quetiapine 25 Mg Tab) 50 mg PO QHS [facility] Last Admin: 04/16/21 22:00 Dose: 50 mg Documented by: Trazodone HCl (Trazodone 50 Mg Tab) 50 mg PO [facility] Last Admin: 04/16/21 22:01 Dose: 50 mg Documented by: Results - Results Labs/Vitals: Laboratory Last Values WBC 3.8 K/mm3 (4.5-11.0) L 04/15/21 13:44 RBC 3.87 M/mm3 (3.65-5.03) 04/15/21 13:44 Hgb 11.5 gm/dl (11.8-15.2) L 04/15/21 13:44 Hct 34.8 % (35.5-45.6) L 04/15/21 13:44 MCV 90 fl (84-94) 04/15/21 13:44 MCH 30 pg (28-32) 04/15/21 13:44 MCHC 33 % (32-34) 04/15/21 13:44 RDW 16.1 % (13.2-15.2) H 04/15/21 13:44 Plt Count 150 K/mm3 (140-440) 04/15/21 13:44 Lymph % (Auto) 30.4 % (13.4-35.0) 04/15/21 13:44 [place] % (Auto) 12.7 % (0.0-7.3) H 04/15/21 13:44 Eos % (Auto) 8.7 % (0.0-4.3) H 04/15/21 13:44 Baso % (Auto) 0.8 % (0.0-1.8) 04/15/21 13:44 Lymph # (Auto) 1.2 K/mm3 (1.2-5.4) 04/15/21 13:44 [place] # (Auto) 0.5 K/mm3 (0.0-0.8) 04/15/21 13:44 Eos # (Auto) 0.3 K/mm3 (0.0-0.4) 04/15/21 13:44 Baso # (Auto) 0.0 K/mm3 (0.0-0.1) 04/15/21 13:44 Seg Neutrophils % 47.4 % (40.0-70.0) 04/15/21 13:44 Seg Neutrophils # 1.8 K/mm3 (1.8-7.7) 04/15/21 13:44 PT 13.3 Sec. (12.2-14.9) 04/15/21 23:45 INR 0.96 (0.87-1.13) 04/15/21 23:45 APTT 26.7 Sec. (24.2-36.6) 04/15/21 23:45 Sodium 135 mmol/L (137-145) L 04/15/21 13:46 Potassium 5.9 mmol/L (3.6-5.0) H 04/15/21 13:46 Chloride 99.9 mmol/L (98-107) 04/15/21 13:46 Carbon Dioxide 26 mmol/L (22-30) 04/15/21 13:46 Anion Gap 15 mmol/L 04/15/21 13:46 BUN 30 mg/dL (9-20) H 04/15/21 13:46 Creatinine 1.8 mg/dL (0.8-1.3) H 04/15/21 23:45 Estimated GFR 47 ml/min 04/15/21 23:45 BUN/Creatinine Ratio 18 % 04/15/21 13:46 Glucose 348 mg/dL (75-100) H 04/15/21 13:46 POC Glucose 302 mg/dL (70-105) H 04/17/21 08:17 Hemoglobin A1c 9.2 % (4-6) H 04/15/21 13:46 Calcium 9.4 mg/dL (8.4-10.2) 04/15/21 13:46 Total Bilirubin < 0.20 mg/dL (0.1-1.2) 04/15/21 13:46 AST 16 units/L (5-40) 04/15/21 13:46 ALT 28 units/L (7-56) 04/15/21 13:46 Alkaline Phosphatase 104 units/L (35-129) 04/15/21 13:46 Total Protein 7.5 g/dL (6.3-8.2) 04/15/21 13:46 Albumin 4.1 g/dL (3.9-5) 04/15/21 13:46 Albumin/Globulin Ratio 1.2 % 04/15/21 13:46 Triglycerides 154 mg/dL (2-149) H 04/15/21 13:46 Cholesterol 163 mg/dL (50-199) 04/15/21 13:46 LDL Cholesterol Direct 104 mg/dL (50-130) 04/15/21 13:46 HDL Cholesterol 43 mg/dL (40-59) 04/15/21 13:46 Cholesterol/HDL Ratio 3.79 % 04/15/21 13:46 TSH 1.370 mlU/mL (0.270-4.200) 04/15/21 13:46 Hepatitis A IgM Ab Non-reactive (NonReactive) 04/15/21 13:46 Hep Bs Antigen Nonreactive (Negative) 04/15/21 13:46 Hep B Core IgM Ab Non-reactive (NonReactive) 04/15/21 13:46 Hepatitis C Antibody Non-reactive (NonReactive) 04/15/21 13:46 Last Vital Signs Temp 99.1 F 04/16/21 19:32 Pulse 66 04/16/21 22:01 Resp 20 04/16/21 19:32 BP 145/65 04/16/21 22:01 Pulse Ox 99 04/16/21 19:32
[2021-04-17] MEDS: ESCITALOPRAM 10 MG TAB PO SCH (11:26)
[2021-04-17] MEDS: FUROSEMIDE 20 MG TAB PO SCH (11:27)
[2021-04-17] MEDS: DIVALPROEX DR 250 MG TAB PO SCH ×2 (11:27→21:21)
[2021-04-17] MEDS: APIXABAN 5 MG TAB PO SCH ×2 (11:27→21:22)
[2021-04-17] MEDS: ASPIRIN 81 MG TAB CHEW PO SCH (11:27)
[2021-04-17] MEDS: METOPROLOL TARTRATE 50 MG TAB PO SCH ×2 (11:27→21:23)
[2021-04-17] MEDS: busPIRone 5 MG TAB PO SCH ×2 (11:28→21:19)
[2021-04-17] MEDS: FERROUS SULFATE 325 MG TAB PO SCH (11:29)
[2021-04-17] MEDS: FAMOTIDINE 20 MG TAB PO SCH (11:29)
[2021-04-17] MEDS: AMIODARONE 200 MG TAB PO SCH ×2 (11:29→21:24)
[2021-04-17] MEDS: FENOFIBRATE 48 MG TAB PO SCH (11:31)
[2021-04-17] MEDS: glipiZIDE 5 MG TAB PO SCH ×2 (11:32→21:21)
[2021-04-17] MEDS: GABAPENTIN 300 MG CAP PO SCH ×3 (11:33→20:50)
[2021-04-17] MEDS: hydrALAZINE 10 MG TAB PO SCH ×3 (11:33→21:24)
[2021-04-17] MEDS: LISINOPRIL 5 MG TAB PO SCH (11:48)
[2021-04-17 13:47] LABS: Hematocrit 35.1 % (35.5-45.6); Hemoglobin 11.7 gm/dl (11.8-15.2); Mean Corpuscular HGB Conc 34 % (32-34); Mean Corpuscular Volume 90 fl (84-94); Platelet Count 126 K/mm3 (140-440); Red Blood Count 3.89 M/mm3 (3.65-5.03); Red Cell Distribution Width 15.3 % (13.2-15.2)
--- NOTE | 2021-04-17 19:15 | Progress Note ---
Assessment and Plan Assessment and plan: --Diabetes mellitus;Uncontrolled increase glipizide dose to 10 mg twice a day Accu-Chek sliding scale coverage ADA diet Glipizide and insulin as needed --Hyperkalemia; Received Kayexalate, calcium gluconate Check potassium --Congestive heart failure; Resume home antifailure medications Supportive care --Hypertension; moderate control Continue current antihypertensives and as needed hydralazine --History of coronary artery disease; Continue cardiac medications --History of atrial flutter Continue Eliquis and metoprolol --History of dyslipidemia; Low-cholesterol diet and lipid-lowering medications --Diabetic neuropathy; Continue gabapentin --DVT prophylaxis SCDs while resting Ambulate as tolerated We will closely monitor the patient and adjust management as needed Plan of care reviewed with the patient and his nurse Thank you for this consultation we will follow the patient along with you call us with questions History Interval history: I have seen and patient , charts and medications reviewed Patient's blood sugars uncontrolled Patient has no new complaints Vital signs noted Hospitalist Physical - Constitutional Vitals: Temp Pulse Resp BP Pulse Ox 97.5 F L 72 20 146/62 99 04/17/21 10:24 04/17/21 17:44 04/17/21 10:24 04/17/21 17:44 04/17/21 10:24 General appearance: Present: no acute distress, well-nourished - EENT Eyes: Present: PERRL, EOM intact - Neck Neck: Present: supple, normal ROM - Respiratory Respiratory effort: normal Respiratory: bilateral: diminished, negative: rales, rhonchi, wheezing - Cardiovascular Rhythm: regular Heart Sounds: Present: S1 & S2 - Extremities Extremities: no ischemia, No edema - Abdominal General gastrointestinal: soft, non-tender, non-distended, normal bowel sounds - Integumentary Integumentary: Present: clear, warm - Psychiatric Psychiatric: appropriate mood/affect, cooperative - Neurologic Neurologic: moves all extremities Results - Labs CBC & Chem 7: 04/17/21 13:29 04/15/21 23:45 Labs: Laboratory Last Values WBC 4.5 K/mm3 (4.5-11.0) 04/17/21 13:29 RBC 3.89 M/mm3 (3.65-5.03) 04/17/21 13:29 Hgb 11.7 gm/dl (11.8-15.2) L 04/17/21 13:29 Hct 35.1 % (35.5-45.6) L 04/17/21 13:29 MCV 90 fl (84-94) 04/17/21 13:29 MCH 30 pg (28-32) 04/17/21 13:29 MCHC 34 % (32-34) 04/17/21 13:29 RDW 15.3 % (13.2-15.2) H 04/17/21 13:29 Plt Count 126 K/mm3 (140-440) L 04/17/21 13:29 Lymph % (Auto) 30.4 % (13.4-35.0) 04/15/21 13:44 [place] % (Auto) 12.7 % (0.0-7.3) H 04/15/21 13:44 Eos % (Auto) 8.7 % (0.0-4.3) H 04/15/21 13:44 Baso % (Auto) 0.8 % (0.0-1.8) 04/15/21 13:44 Lymph # (Auto) 1.2 K/mm3 (1.2-5.4) 04/15/21 13:44 [place] # (Auto) 0.5 K/mm3 (0.0-0.8) 04/15/21 13:44 Eos # (Auto) 0.3 K/mm3 (0.0-0.4) 04/15/21 13:44 Baso # (Auto) 0.0 K/mm3 (0.0-0.1) 04/15/21 13:44 Seg Neutrophils % 47.4 % (40.0-70.0) 04/15/21 13:44 Seg Neutrophils # 1.8 K/mm3 (1.8-7.7) 04/15/21 13:44 PT 13.3 Sec. (12.2-14.9) 04/15/21 23:45 INR 0.96 (0.87-1.13) 04/15/21 23:45 APTT 26.7 Sec. (24.2-36.6) 04/15/21 23:45 Sodium 135 mmol/L (137-145) L 04/15/21 13:46 Potassium 5.9 mmol/L (3.6-5.0) H 04/15/21 13:46 Chloride 99.9 mmol/L (98-107) 04/15/21 13:46 Carbon Dioxide 26 mmol/L (22-30) 04/15/21 13:46 Anion Gap 15 mmol/L 04/15/21 13:46 BUN 30 mg/dL (9-20) H 04/15/21 13:46 Creatinine 1.8 mg/dL (0.8-1.3) H 04/15/21 23:45 Estimated GFR 47 ml/min 04/15/21 23:45 BUN/Creatinine Ratio 18 % 04/15/21 13:46 Glucose 348 mg/dL (75-100) H 04/15/21 13:46 POC Glucose 286 mg/dL (70-105) H 04/17/21 17:15 Hemoglobin A1c 9.2 % (4-6) H 04/15/21 13:46 Calcium 9.4 mg/dL (8.4-10.2) 04/15/21 13:46 Total Bilirubin < 0.20 mg/dL (0.1-1.2) 04/15/21 13:46 AST 16 units/L (5-40) 04/15/21 13:46 ALT 28 units/L (7-56) 04/15/21 13:46 Alkaline Phosphatase 104 units/L (35-129) 04/15/21 13:46 Total Protein 7.5 g/dL (6.3-8.2) 04/15/21 13:46 Albumin 4.1 g/dL (3.9-5) 04/15/21 13:46 Albumin/Globulin Ratio 1.2 % 04/15/21 13:46 Triglycerides 154 mg/dL (2-149) H 04/15/21 13:46 Cholesterol 163 mg/dL (50-199) 04/15/21 13:46 LDL Cholesterol Direct 104 mg/dL (50-130) 04/15/21 13:46 HDL Cholesterol 43 mg/dL (40-59) 04/15/21 13:46 Cholesterol/HDL Ratio 3.79 % 04/15/21 13:46 TSH 1.370 mlU/mL (0.270-4.200) 04/15/21 13:46 Hepatitis A IgM Ab Non-reactive (NonReactive) 04/15/21 13:46 Hep Bs Antigen Nonreactive (Negative) 04/15/21 13:46 Hep B Core IgM Ab Non-reactive (NonReactive) 04/15/21 13:46 Hepatitis C Antibody Non-reactive (NonReactive) 04/15/21 13:46 Mercedes/IV: Voiding Method Toilet Active Medications - Current Medications Current Medications: Generic Name Dose Route Start Last Admin Trade Name Freq PRN Reason Stop Dose Admin Amiodarone HCl 200 mg 04/15/21 10:00 04/17/21 11:29 Amiodarone 200 Mg Tab PO 200 mg BID MIC Administration Apixaban 5 mg 04/15/21 14:00 04/17/21 11:27 Apixaban 5 Mg Tab PO 5 mg Q12HR MIC Administration Protocol Aspirin 81 mg 04/15/21 14:00 04/17/21 11:27 Aspirin 81 Mg Tab Chew PO 81 mg QDAY MIC Administration Atorvastatin Calcium 40 mg 04/15/21 22:00 04/16/21 21:49 Atorvastatin 40 Mg Tab PO 40 mg QHS MIC Administration Buspirone HCl 7.5 mg 04/15/21 22:00 04/17/21 11:28 Buspirone 5 Mg Tab PO 7.5 mg BID MIC Administration Divalproex Sodium 250 mg 04/15/21 10:00 04/17/21 11:[address] 250 Mg Tab PO 250 mg BID MIC Administration Escitalopram Oxalate 20 mg 04/16/21 10:00 04/17/21 11:26 Escitalopram 10 Mg Tab PO 20 mg QDAY MIC Administration Famotidine 20 mg 04/15/21 10:00 04/17/21 11:29 Famotidine 20 Mg Tab PO 20 mg DAILY MIC Administration Fenofibrate 48 mg 04/16/21 10:00 04/17/21 11:31 Fenofibrate 48 Mg Tab PO 48 mg DAILY MIC Administration Ferrous Sulfate 325 mg 04/15/21 10:00 04/17/21 11:29 Ferrous Sulfate 325 Mg Tab PO 325 mg DAILY MIC Administration Furosemide 20 mg 04/15/21 10:00 04/17/21 11:27 Furosemide 20 Mg Tab PO 20 mg QDAY MIC Administration Gabapentin 300 mg 04/15/21 14:00 04/17/21 17:43 Gabapentin 300 Mg Cap PO 300 mg TID MIC Administration Glipizide 5 mg 04/15/21 22:00 04/17/21 11:32 Glipizide 5 Mg Tab PO 5 mg BID MIC Administration Hydralazine HCl 10 mg 04/15/21 22:00 04/17/21 17:44 Hydralazine 10 Mg Tab PO 10 mg Q8HR MIC Administration Hydralazine HCl 10 mg 04/15/21 20:07 Hydralazine 10 Mg Tab PO Q4H PRN Hypertension Insulin Human Lispro 0 unit 04/15/21 13:30 04/17/21 17:45 Insulin Lispro 100 Unit/Ml SUB-Q 4 unit ACHS MIC Administration Protocol Lisinopril 5 mg 04/15/21 10:00 04/17/21 11:48 Lisinopril 5 Mg Tab PO 5 mg DAILY MIC Administration Melatonin 10 mg 04/15/21 22:00 04/16/21 21:49 Melatonin 5 Mg Tab PO 10 mg QHS MIC Administration Metoprolol Tartrate 50 mg 04/15/21 10:00 04/17/21 11:27 Metoprolol Tartrate 50 Mg Tab PO 50 mg BID MIC Administration Miscellaneous Medication 50 mg 04/15/21 22:00 04/16/21 22:11 Quetiapine Fumarate [Seroquel] PO Not Given HS MIC Quetiapine Fumarate 50 mg 04/15/21 22:00 04/16/21 22:00 Quetiapine 25 Mg Tab PO 50 mg QHS MIC Administration Trazodone HCl 50 mg 04/15/21 22:00 04/16/21 22:01 Trazodone 50 Mg Tab PO 50 mg HS MIC Administration
[2021-04-17] MEDS: MELATONIN 5 MG TAB PO SCH (21:20)
[2021-04-17] MEDS: traZODone 50 MG TAB PO SCH (21:21)
[2021-04-17] MEDS: QUEtiapine 25 MG TAB PO SCH (21:22)
[2021-04-17] MEDS: NON-FORMULARY EACH (Quetiapine Fumarate [Seroquel] 50 MG Tablet) PO SCH (22:27)
[2021-04-18] MEDS: hydrALAZINE 10 MG TAB PO SCH ×2 (05:47→13:39)
[2021-04-18] MEDS: FENOFIBRATE 48 MG TAB PO SCH (09:22)
[2021-04-18] MEDS: AMIODARONE 200 MG TAB PO SCH ×2 (09:23→21:53)
[2021-04-18] MEDS: FAMOTIDINE 20 MG TAB PO SCH (09:23)
[2021-04-18] MEDS: busPIRone 5 MG TAB PO SCH ×2 (09:23→21:53)
[2021-04-18] MEDS: DIVALPROEX DR 250 MG TAB PO SCH ×2 (09:23→21:51)
[2021-04-18] MEDS: APIXABAN 5 MG TAB PO SCH ×2 (09:23→21:52)
[2021-04-18] MEDS: ESCITALOPRAM 10 MG TAB PO SCH (09:24)
[2021-04-18] MEDS: ASPIRIN 81 MG TAB CHEW PO SCH (09:24)
[2021-04-18] MEDS: glipiZIDE 5 MG TAB PO SCH ×2 (09:25→21:51)
[2021-04-18] MEDS: FERROUS SULFATE 325 MG TAB PO SCH (09:28)
[2021-04-18] MEDS: GABAPENTIN 300 MG CAP PO SCH ×3 (09:28→21:50)
[2021-04-18] MEDS: FUROSEMIDE 20 MG TAB PO SCH (09:28)
[2021-04-18] MEDS: LISINOPRIL 5 MG TAB PO SCH (09:28)
[2021-04-18] MEDS: INSULIN LISPRO 100 UNIT/ML SUB-Q SCH ×3 (09:30→16:32)
[2021-04-18] MEDS: METOPROLOL TARTRATE 50 MG TAB PO SCH (09:30)
--- NOTE | 2021-04-18 10:27 | Progress Note ---
Subjective Date of service: 04/18/21 Principal diagnosis: schizophrenia Subjective Comment: The patient was seen today. The patient states he is not doing too good. He says he has nowhere to go and that's making him feel worse. He says that is why he is suicidal because he doesn't know where he's going to go when he is discharged from here. He denies hallucinations of any kind. REVIEW OF SYSTEMS Constitutional: Negative for weight loss ENT: Negative for stridor Respiratory: Negative for cough or hemoptysis All other systems reviewed and are negative MENTAL STATUS EXAMINATION General Appearance and Behavior: Age appropriate, good hygiene, wearing appropriate clothes, fair eye contact Cooperation: Participating/engaged Psychomotor Behavior: Psychomotor normal Mood: "Depressed" Affect and affective range: Congruent to stated mood Thought Process: goal Directed Thought Content: SI, hopelessness Speech: normal tone and pace Suicidal Ideation: Yes Homicidal Ideation: Denies Hallucinations: Denies Impulse Control: Questionable Insight and Judgment: Limited insight and fair judgment Memory: Normal Attention: Normal Orientation: Alert and oriented Assessment and Plan (1) Schizophrenia-F20.9 Current Visit: Yes Status: Acute Treatment Plan Patient admitted for inpatient psychiatric evaluation, medication adjustment and close monitoring The patient's behavior, mood, sleep and appetite will be closely monitored. Patient enrolled in individual and group therapeutic sessions and encouraged to attend. Patient provided with a safe and structured environment. Patient's physical health needs will be addressed by the Hospitalist. Hospitalist Consulted Labs including CBC, CMP, Lipid profile and Hemoglobin A1C levels ordered for baseline reference Social Assessment will be completed and the Carving Machine Operator will work with patient and family to ensure a suitable and safe disposition Medication adjustment will be made as clinically indicated No changes today Usual Wellness Evangelical/Preservation: - Start Trazodone 50 mg po QHS & 50 mg po QHS PRN between 10 PM & 2 AM for insomnia - Start Melatonin 5 mg po QHS to promote circadian rhythm The patient agreed on the treatment plan, understood the risk, benefit, alternative treatment, potential consequence of no treatment, and gave informed consent. Estimated days: 5 Post hospital care: primary care provider, psychiatric provider Case staffed with Dr. March Medications and Allergies Allergies Allergy/AdvReac Type Severity Reaction Status Date / Time No Known Allergies Allergy Unverified 04/15/21 05:52 Home Medications Medication Instructions Recorded Confirmed Last Taken Type Amiodarone [Cordarone 200 MG TAB] 200 mg PO BID 04/15/21 04/15/21 Unknown History Apixaban [Eliquis] 5 mg PO BID 04/15/21 04/15/21 Unknown History Aspirin 81 mg PO DAILY 04/15/21 04/15/21 Unknown History AtorvaSTATin [Lipitor] 40 mg PO QHS 04/15/21 04/15/21 Unknown History Divalproex [DepKelsie DR] 250 mg PO BID 04/15/21 04/15/21 Unknown History Escitalopram [Lexapro] 10 mg PO DAILY 04/15/21 04/15/21 Unknown History Famotidine [Acid-Pep] 20 mg PO DAILY 04/15/21 04/15/21 Unknown History Fenofibrate 54 mg PO DAILY 04/15/21 04/15/21 Unknown History Ferrous Sulfate [Feosol 325 MG tab] 325 mg PO DAILY 04/15/21 04/15/21 Unknown History Furosemide [Lasix] 20 mg PO QDAY 04/15/21 04/15/21 Unknown History Gabapentin 300 mg PO TID 04/15/21 04/15/21 Unknown History Lisinopril [Zestril] 5 mg PO DAILY 04/15/21 04/15/21 Unknown History Melatonin [Melatonin 10MG TAB] 10 mg PO HS 04/15/21 04/15/21 Unknown History Metoprolol [Lopressor TAB] 50 mg PO BID 04/15/21 04/15/21 Unknown History Quetiapine Fumarate [SEROquel] 50 mg PO HS 04/15/21 04/15/21 Unknown History Trazodone HCl 50 mg PO HS 04/15/21 04/15/21 Unknown History busPIRone [Buspar] 7.5 mg PO BID 04/15/21 04/15/21 Unknown History glipiZIDE [Glucotrol] 5 mg PO QDAY 04/15/21 04/15/21 Unknown History Active Meds: Active Medications Amiodarone HCl (Amiodarone 200 Mg Tab) 200 mg PO BID [facility] Last Admin: 04/18/21 09:23 Dose: 200 mg Documented by: Apixaban (Apixaban 5 Mg Tab) 5 mg PO Q12HR MIC; Protocol Last Admin: 04/18/21 09:23 Dose: 5 mg Documented by: Aspirin (Aspirin 81 Mg Tab Chew) 81 mg PO QDAY [facility] Last Admin: 04/18/21 09:24 Dose: 81 mg Documented by: Atorvastatin Calcium (Atorvastatin 40 Mg Tab) 40 mg PO QHS [facility] Last Admin: 04/17/21 21:20 Dose: 40 mg Documented by: Buspirone HCl (Buspirone 5 Mg Tab) 7.5 mg PO BID [facility] Last Admin: 04/18/21 09:23 Dose: 7.5 mg Documented by: Divalproex Sodium (Divalproex Dr 250 Mg Tab) 250 mg PO BID [facility] Last Admin: 04/18/21 09:23 Dose: 250 mg Documented by: Escitalopram Oxalate (Escitalopram 10 Mg Tab) 20 mg PO QDAY [facility] Last Admin: 04/18/21 09:24 Dose: 20 mg Documented by: Famotidine (Famotidine 20 Mg Tab) 20 mg PO DAILY [facility] Last Admin: 04/18/21 09:23 Dose: 20 mg Documented by: Fenofibrate (Fenofibrate 48 Mg Tab) 48 mg PO DAILY [facility] Last Admin: 04/18/21 09:22 Dose: 48 mg Documented by: Ferrous Sulfate (Ferrous Sulfate 325 Mg Tab) 325 mg PO DAILY [facility] Last Admin: 04/18/21 09:28 Dose: 325 mg Documented by: Furosemide (Furosemide 20 Mg Tab) 20 mg PO QDAY [facility] Last Admin: 04/18/21 09:28 Dose: 20 mg Documented by: Gabapentin (Gabapentin 300 Mg Cap) 300 mg PO TID [facility] Last Admin: 04/18/21 09:28 Dose: 300 mg Documented by: Glipizide (Glipizide 5 Mg Tab) 10 mg PO BID [facility] Last Admin: 04/18/21 09:25 Dose: 10 mg Documented by: Hydralazine HCl (Hydralazine 10 Mg Tab) 10 mg PO Q8HR [facility] Last Admin: 04/18/21 05:47 Dose: Not Given Documented by: Hydralazine HCl (Hydralazine 10 Mg Tab) 10 mg PO Q4H PRN PRN Reason: Hypertension Insulin Human Lispro (Insulin Lispro 100 Unit/Ml) 0 unit SUB-Q ACHS [facility]; Protocol Last Admin: 04/18/21 09:30 Dose: 4 unit Documented by: Lisinopril (Lisinopril 5 Mg Tab) 5 mg PO DAILY [facility] Last Admin: 04/18/21 09:28 Dose: 5 mg Documented by: Melatonin (Melatonin 5 Mg Tab) 10 mg PO QHS [facility] Last Admin: 04/17/21 21:20 Dose: 10 mg Documented by: Metoprolol Tartrate (Metoprolol Tartrate 50 Mg Tab) 50 mg PO BID [facility] Last Admin: 04/18/21 09:30 Dose: Not Given Documented by: Miscellaneous Medication (Quetiapine Fumarate [Seroquel]) 50 mg PO [facility] Last Admin: 04/17/21 22:27 Dose: Not Given Documented by: Quetiapine Fumarate (Quetiapine 25 Mg Tab) 50 mg PO QHS [facility] Last Admin: 04/17/21 21:22 Dose: 50 mg Documented by: Trazodone HCl (Trazodone 50 Mg Tab) 50 mg PO [facility] Last Admin: 04/17/21 21:21 Dose: 50 mg Documented by: Results - Results Labs/Vitals: Laboratory Last Values WBC 4.5 K/mm3 (4.5-11.0) 04/17/21 13:29 RBC 3.89 M/mm3 (3.65-5.03) 04/17/21 13:29 Hgb 11.7 gm/dl (11.8-15.2) L 04/17/21 13:29 Hct 35.1 % (35.5-45.6) L 04/17/21 13:29 MCV 90 fl (84-94) 04/17/21 13:29 MCH 30 pg (28-32) 04/17/21 13:29 MCHC 34 % (32-34) 04/17/21 13:29 RDW 15.3 % (13.2-15.2) H 04/17/21 13:29 Plt Count 126 K/mm3 (140-440) L 04/17/21 13:29 Lymph % (Auto) 30.4 % (13.4-35.0) 04/15/21 13:44 [place] % (Auto) 12.7 % (0.0-7.3) H 04/15/21 13:44 Eos % (Auto) 8.7 % (0.0-4.3) H 04/15/21 13:44 Baso % (Auto) 0.8 % (0.0-1.8) 04/15/21 13:44 Lymph # (Auto) 1.2 K/mm3 (1.2-5.4) 04/15/21 13:44 [place] # (Auto) 0.5 K/mm3 (0.0-0.8) 04/15/21 13:44 Eos # (Auto) 0.3 K/mm3 (0.0-0.4) 04/15/21 13:44 Baso # (Auto) 0.0 K/mm3 (0.0-0.1) 04/15/21 13:44 Seg Neutrophils % 47.4 % (40.0-70.0) 04/15/21 13:44 Seg Neutrophils # 1.8 K/mm3 (1.8-7.7) 04/15/21 13:44 PT 13.3 Sec. (12.2-14.9) 04/15/21 23:45 INR 0.96 (0.87-1.13) 04/15/21 23:45 APTT 26.7 Sec. (24.2-36.6) 04/15/21 23:45 Sodium 135 mmol/L (137-145) L 04/15/21 13:46 Potassium 5.3 mmol/L (3.6-5.0) H 04/18/21 08:54 Chloride 99.9 mmol/L (98-107) 04/15/21 13:46 Carbon Dioxide 26 mmol/L (22-30) 04/15/21 13:46 Anion Gap 15 mmol/L 04/15/21 13:46 BUN 30 mg/dL (9-20) H 04/15/21 13:46 Creatinine 1.7 mg/dL (0.8-1.3) H 04/18/21 08:54 Estimated GFR 51 ml/min 04/18/21 08:54 BUN/Creatinine Ratio 18 % 04/15/21 13:46 Glucose 348 mg/dL (75-100) H 04/15/21 13:46 POC Glucose 290 mg/dL (70-105) H 04/18/21 08:04 Hemoglobin A1c 9.2 % (4-6) H 04/15/21 13:46 Calcium 9.4 mg/dL (8.4-10.2) 04/15/21 13:46 Total Bilirubin < 0.20 mg/dL (0.1-1.2) 04/15/21 13:46 AST 16 units/L (5-40) 04/15/21 13:46 ALT 28 units/L (7-56) 04/15/21 13:46 Alkaline Phosphatase 104 units/L (35-129) 04/15/21 13:46 Total Protein 7.5 g/dL (6.3-8.2) 04/15/21 13:46 Albumin 4.1 g/dL (3.9-5) 04/15/21 13:46 Albumin/Globulin Ratio 1.2 % 04/15/21 13:46 Triglycerides 154 mg/dL (2-149) H 04/15/21 13:46 Cholesterol 163 mg/dL (50-199) 04/15/21 13:46 LDL Cholesterol Direct 104 mg/dL (50-130) 04/15/21 13:46 HDL Cholesterol 43 mg/dL (40-59) 04/15/21 13:46 Cholesterol/HDL Ratio 3.79 % 04/15/21 13:46 TSH 1.370 mlU/mL (0.270-4.200) 04/15/21 13:46 Hepatitis A IgM Ab Non-reactive (NonReactive) 04/15/21 13:46 Hep Bs Antigen Nonreactive (Negative) 04/15/21 13:46 Hep B Core IgM Ab Non-reactive (NonReactive) 04/15/21 13:46 Hepatitis C Antibody Non-reactive (NonReactive) 04/15/21 13:46 Last Vital Signs Temp 98.5 F 04/18/21 07:36 Pulse 60 04/18/21 09:30 Resp 18 04/18/21 07:36 BP 122/61 04/18/21 09:30 Pulse Ox 96 04/18/21 07:36
[2021-04-18] MEDS: INSULIN GLARGINE 100 UNITS/ML SUB-Q SCH (13:40)
[2021-04-18] MEDS: MELATONIN 5 MG TAB PO SCH (21:49)
[2021-04-19] MEDS: hydrALAZINE 10 MG TAB PO SCH ×5 (00:01→21:13)
[2021-04-19] MEDS: METOPROLOL TARTRATE 50 MG TAB PO SCH ×3 (00:02→21:12)
[2021-04-19] MEDS: traZODone 50 MG TAB PO SCH ×2 (00:15→21:11)
[2021-04-19] MEDS: QUEtiapine 25 MG TAB PO SCH ×2 (00:35→21:10)
[2021-04-19] MEDS: INSULIN LISPRO 100 UNIT/ML SUB-Q SCH ×5 (07:49→21:15)
[2021-04-19] MEDS: GABAPENTIN 300 MG CAP PO SCH ×3 (07:50→20:51)
[2021-04-19 08:07] LABS: Hemoglobin 11.6 gm/dl (11.8-15.2); Mean Corpuscular HGB Conc 33 % (32-34); Mean Corpuscular Volume 90 fl (84-94); Platelet Count 154 K/mm3 (140-440); Red Blood Count 3.87 M/mm3 (3.65-5.03); Red Cell Distribution Width 15.3 % (13.2-15.2)
--- NOTE | 2021-04-19 09:35 | Discharge Summary ---
Providers - Providers Date of Admission: 04/15/21 04:44 Date of discharge: 04/19/21 Attending physician: FILOMENA VEGA MD 04/14/21 13:24 Consult to Physician [CONS] Routine Comment: Consulting Provider: HUGO SWEET Physician Instructions: Reason For Exam: manage existing medical conditions Primary care physician: DISPATCHER SERVICE CHIEF Hospitalization Reason for admission: depression Admitting Diagnosis: F20.9 - SCHIZOPHRENIA, UNSPECIFIED Hospital course: The patient was provided inpatient psychiatric treatment with safe and supportive care, medication adjustment, adverse effect monitoring, medical evaluations, medical treatments, assessment and psycho-education. The patient's mood, cognition, behavior, moral support are improved and stabilized. St the time of discharge, the patient had no endangering behavior and no debilitating adverse effects. The patient agreed on potential consequences of no treatment and gave informed consent. Disposition: 01 HOME / SELF CARE / HOMELESS Time spent for discharge: 35 Allergies/Adverse Reactions: Allergies No Known Allergies Allergy (Unverified 04/15/21 05:52) Vital Signs: Last Vital Signs Temp 98.5 F 04/18/21 19:31 Pulse 66 04/19/21 07:40 Resp 18 04/18/21 19:31 BP 126/60 04/19/21 07:40 Pulse Ox 99 04/19/21 05:57 Last Lab: Laboratory Last Values WBC 5.0 K/mm3 (4.5-11.0) 04/19/21 07:26 RBC 3.87 M/mm3 (3.65-5.03) 04/19/21 07:26 Hgb 11.6 gm/dl (11.8-15.2) L 04/19/21 07:26 Hct 35.0 % (35.5-45.6) L 04/19/21 07:26 MCV 90 fl (84-94) 04/19/21 07:26 MCH 30 pg (28-32) 04/19/21 07:26 MCHC 33 % (32-34) 04/19/21 07:26 RDW 15.3 % (13.2-15.2) H 04/19/21 07:26 Plt Count 154 K/mm3 (140-440) 04/19/21 07:26 Lymph % (Auto) 30.4 % (13.4-35.0) 04/15/21 13:44 [place] % (Auto) 12.7 % (0.0-7.3) H 04/15/21 13:44 Eos % (Auto) 8.7 % (0.0-4.3) H 04/15/21 13:44 Baso % (Auto) 0.8 % (0.0-1.8) 04/15/21 13:44 Lymph # (Auto) 1.2 K/mm3 (1.2-5.4) 04/15/21 13:44 [place] # (Auto) 0.5 K/mm3 (0.0-0.8) 04/15/21 13:44 Eos # (Auto) 0.3 K/mm3 (0.0-0.4) 04/15/21 13:44 Baso # (Auto) 0.0 K/mm3 (0.0-0.1) 04/15/21 13:44 Seg Neutrophils % 47.4 % (40.0-70.0) 04/15/21 13:44 Seg Neutrophils # 1.8 K/mm3 (1.8-7.7) 04/15/21 13:44 PT 13.3 Sec. (12.2-14.9) 04/15/21 23:45 INR 0.96 (0.87-1.13) 04/15/21 23:45 APTT 26.7 Sec. (24.2-36.6) 04/15/21 23:45 Sodium 135 mmol/L (137-145) L 04/15/21 13:46 Potassium 5.3 mmol/L (3.6-5.0) H 04/18/21 08:54 Chloride 99.9 mmol/L (98-107) 04/15/21 13:46 Carbon Dioxide 26 mmol/L (22-30) 04/15/21 13:46 Anion Gap 15 mmol/L 04/15/21 13:46 BUN 30 mg/dL (9-20) H 04/15/21 13:46 Creatinine 1.7 mg/dL (0.8-1.3) H 04/18/21 08:54 Estimated GFR 51 ml/min 04/18/21 08:54 BUN/Creatinine Ratio 18 % 04/15/21 13:46 Glucose 348 mg/dL (75-100) H 04/15/21 13:46 POC Glucose 241 mg/dL (70-105) H 04/19/21 06:47 Hemoglobin A1c 9.2 % (4-6) H 04/15/21 13:46 Calcium 9.4 mg/dL (8.4-10.2) 04/15/21 13:46 Total Bilirubin < 0.20 mg/dL (0.1-1.2) 04/15/21 13:46 AST 16 units/L (5-40) 04/15/21 13:46 ALT 28 units/L (7-56) 04/15/21 13:46 Alkaline Phosphatase 104 units/L (35-129) 04/15/21 13:46 Total Protein 7.5 g/dL (6.3-8.2) 04/15/21 13:46 Albumin 4.1 g/dL (3.9-5) 04/15/21 13:46 Albumin/Globulin Ratio 1.2 % 04/15/21 13:46 Triglycerides 154 mg/dL (2-149) H 04/15/21 13:46 Cholesterol 163 mg/dL (50-199) 04/15/21 13:46 LDL Cholesterol Direct 104 mg/dL (50-130) 04/15/21 13:46 HDL Cholesterol 43 mg/dL (40-59) 04/15/21 13:46 Cholesterol/HDL Ratio 3.79 % 04/15/21 13:46 TSH 1.370 mlU/mL (0.270-4.200) 04/15/21 13:46 Hepatitis A IgM Ab Non-reactive (NonReactive) 04/15/21 13:46 Hep Bs Antigen Nonreactive (Negative) 04/15/21 13:46 Hep B Core IgM Ab Non-reactive (NonReactive) 04/15/21 13:46 Hepatitis C Antibody Non-reactive (NonReactive) 04/15/21 13:46 Core Measure Documentation - Palliative Care Palliative Care/ Comfort Measures: Not Applicable - Core Measures Any of the following diagnoses?: none Exam - Constitutional Vitals: Temp Pulse Resp BP Pulse Ox 98.5 F 66 18 126/60 99 04/18/21 19:31 04/19/21 07:40 04/18/21 19:31 04/19/21 07:40 04/19/21 05:57 General appearance: Present: no acute distress - EENT Eyes: Present: PERRL, EOM intact ENT: hearing intact, clear oral mucosa - Neck Neck: Present: supple, normal ROM - Respiratory Respiratory effort: normal Plan Activity: advance as tolerated Weight Bearing Status: Weight Bear as Tolerated Care Plan Goals: Maintain good and stable mental health Plan of Treatment: The patient should be compliant with medications, not to use drugs, and not to drink alcohol. The patient understands that if suicidal ideas, homicidal ideas or any endangering feeling arise, the patient should seek assistance including, but not limited to crisis hotline, and emergency room. Assessment: Schizophrenia Follow up with: PRIMARY CARE, [Primary Care Provider] - 7 Days Prescriptions: Melatonin [Melatonin 5MG TAB] 10 mg PO QHS #[address] [Depakote Dr] 250 mg PO BID #60 traZODone [Desyrel] 50 mg PO HS #30 tablet Escitalopram [Lexapro] 20 mg PO QDAY #60 tablet Quetiapine Fumarate [SEROquel] 50 mg PO HS #30
[2021-04-19] MEDS: FERROUS SULFATE 325 MG TAB PO SCH (10:05)
[2021-04-19] MEDS: ESCITALOPRAM 10 MG TAB PO SCH (10:05)
[2021-04-19] MEDS: FUROSEMIDE 20 MG TAB PO SCH (10:05)
[2021-04-19] MEDS: APIXABAN 5 MG TAB PO SCH ×2 (10:05→21:11)
[2021-04-19] MEDS: DIVALPROEX DR 250 MG TAB PO SCH ×2 (10:05→21:11)
[2021-04-19] MEDS: busPIRone 5 MG TAB PO SCH ×2 (10:05→21:11)
[2021-04-19] MEDS: glipiZIDE 5 MG TAB PO SCH ×2 (10:05→21:11)
[2021-04-19] MEDS: FENOFIBRATE 48 MG TAB PO SCH (10:05)
[2021-04-19] MEDS: FAMOTIDINE 20 MG TAB PO SCH (10:05)
[2021-04-19] MEDS: ASPIRIN 81 MG TAB CHEW PO SCH (10:06)
[2021-04-19] MEDS: AMIODARONE 200 MG TAB PO SCH ×2 (10:07→21:10)
[2021-04-19] MEDS: LISINOPRIL 5 MG TAB PO SCH (10:07)
[2021-04-19] MEDS: INSULIN GLARGINE 100 UNITS/ML SUB-Q SCH ×3 (12:57→21:15)
--- NOTE | 2021-04-19 16:03 | Progress Note ---
Assessment and Plan Assessment and plan: --Diabetes mellitus;Uncontrolled Lantus insulin increased to 15 units twice a day Make sure patient's insulin is given per protocol increase glipizide dose to 10 mg twice a day Accu-Chek sliding scale coverage ADA diet Glipizide and insulin as needed --Hyperkalemia; Received Kayexalate, calcium gluconate Check potassium --Congestive heart failure; Resume home antifailure medications Supportive care --Hypertension; moderate control Continue current antihypertensives and as needed hydralazine --History of coronary artery disease; Continue cardiac medications --History of atrial flutter Continue Eliquis and metoprolol --History of dyslipidemia; Low-cholesterol diet and lipid-lowering medications --Diabetic neuropathy; Continue gabapentin --DVT prophylaxis SCDs while resting Ambulate as tolerated We will closely monitor the patient and adjust management as needed Plan of care reviewed with the patient and his nurse Thank you for this consultation we will follow the patient along with you call us with questions History Interval history: I have seen and examined the patient at the bedside Patient's chart and medications reviewed Patient's blood sugars are uncontrolled No new complaints Hospitalist Physical - Constitutional Vitals: Temp Pulse Resp BP Pulse Ox 98.0 F 62 18 133/59 98 04/19/21 10:06 04/19/21 14:50 04/19/21 10:06 04/19/21 14:50 04/19/21 14:44 General appearance: Present: no acute distress, well-nourished - EENT Eyes: Present: PERRL, EOM intact - Neck Neck: Present: supple, normal ROM - Respiratory Respiratory effort: normal Respiratory: bilateral: diminished, negative: rales, rhonchi, wheezing - Cardiovascular Rhythm: regular Heart Sounds: Present: S1 & S2 - Extremities Extremities: no ischemia, No edema - Abdominal General gastrointestinal: soft, non-tender, non-distended, normal bowel sounds - Integumentary Integumentary: Present: clear, warm - Psychiatric Psychiatric: appropriate mood/affect, cooperative - Neurologic Neurologic: moves all extremities Results - Labs CBC & Chem 7: 04/19/21 07:26 04/18/21 08:54 Labs: Laboratory Last Values WBC 5.0 K/mm3 (4.5-11.0) 04/19/21 07:26 RBC 3.87 M/mm3 (3.65-5.03) 04/19/21 07:26 Hgb 11.6 gm/dl (11.8-15.2) L 04/19/21 07:26 Hct 35.0 % (35.5-45.6) L 04/19/21 07:26 MCV 90 fl (84-94) 04/19/21 07:26 MCH 30 pg (28-32) 04/19/21 07: MCHC 33 % (32-34) 04/19/21 07:26 RDW 15.3 % (13.2-15.2) H 04/19/21 07:26 Plt Count 154 K/mm3 (140-440) 04/19/21 07:26 Lymph % (Auto) 30.4 % (13.4-35.0) 04/15/21 13:44 [place] % (Auto) 12.7 % (0.0-7.3) H 04/15/21 13:44 Eos % (Auto) 8.7 % (0.0-4.3) H 04/15/21 13:44 Baso % (Auto) 0.8 % (0.0-1.8) 04/15/21 13:44 Lymph # (Auto) 1.2 K/mm3 (1.2-5.4) 04/15/21 13:44 [place] # (Auto) 0.5 K/mm3 (0.0-0.8) 04/15/21 13:44 Eos # (Auto) 0.3 K/mm3 (0.0-0.4) 04/15/21 13:44 Baso # (Auto) 0.0 K/mm3 (0.0-0.1) 04/15/21 13:44 Seg Neutrophils % 47.4 % (40.0-70.0) 04/15/21 13:44 Seg Neutrophils # 1.8 K/mm3 (1.8-7.7) 04/15/21 13:44 PT 13.3 Sec. (12.2-14.9) 04/15/21 23:45 INR 0.96 (0.87-1.13) 04/15/21 23:45 APTT 26.7 Sec. (24.2-36.6) 04/15/21 23:45 Sodium 135 mmol/L (137-145) L 04/15/21 13:46 Potassium 5.3 mmol/L (3.6-5.0) H 04/18/21 08:54 Chloride 99.9 mmol/L (98-107) 04/15/21 13:46 Carbon Dioxide 26 mmol/L (22-30) 04/15/21 13:46 Anion Gap 15 mmol/L 04/15/21 13:46 BUN 30 mg/dL (9-20) H 04/15/21 13:46 Creatinine 1.7 mg/dL (0.8-1.3) H 04/18/21 08:54 Estimated GFR 51 ml/min 04/18/21 08:54 BUN/Creatinine Ratio 18 % 04/15/21 13:46 Glucose 348 mg/dL (75-100) H 04/15/21 13:46 POC Glucose 363 mg/dL (70-105) H 04/19/21 12:08 Hemoglobin A1c 9.2 % (4-6) H 04/15/21 13:46 Calcium 9.4 mg/dL (8.4-10.2) 04/15/21 13:46 Total Bilirubin < 0.20 mg/dL (0.1-1.2) 04/15/21 13:46 AST 16 units/L (5-40) 04/15/21 13:46 ALT 28 units/L (7-56) 04/15/21 13:46 Alkaline Phosphatase 104 units/L (35-129) 04/15/21 13:46 Total Protein 7.5 g/dL (6.3-8.2) 04/15/21 13:46 Albumin 4.1 g/dL (3.9-5) 04/15/21 13:46 Albumin/Globulin Ratio 1.2 % 04/15/21 13:46 Triglycerides 154 mg/dL (2-149) H 04/15/21 13:46 Cholesterol 163 mg/dL (50-199) 04/15/21 13:46 LDL Cholesterol Direct 104 mg/dL (50-130) 04/15/21 13:46 HDL Cholesterol 43 mg/dL (40-59) 04/15/21 13:46 Cholesterol/HDL Ratio 3.79 % 04/15/21 13:46 TSH 1.370 mlU/mL (0.270-4.200) 04/15/21 13:46 Hepatitis A IgM Ab Non-reactive (NonReactive) 04/15/21 13:46 Hep Bs Antigen Nonreactive (Negative) 04/15/21 13:46 Hep B Core IgM Ab Non-reactive (NonReactive) 04/15/21 13:46 Hepatitis C Antibody Non-reactive (NonReactive) 04/15/21 13:46 Mercedes/IV: Voiding Method Toilet Active Medications - Current Medications Current Medications: Generic Name Dose Route Start Last Admin Trade Name Mattq PRN Reason Stop Dose Admin Amiodarone HCl 200 mg 04/15/21 10:00 04/19/21 10:07 Amiodarone 200 Mg Tab PO 200 mg BID MIC Administration Apixaban 5 mg 04/15/21 14:00 04/19/21 10:05 Apixaban 5 Mg Tab PO 5 mg Q12HR MIC Administration Protocol Aspirin 81 mg 04/15/21 14:00 04/19/21 10:06 Aspirin 81 Mg Tab Chew PO 81 mg QDAY MIC Administration Atorvastatin Calcium 40 mg 04/15/21 22:00 04/18/21 21:51 Atorvastatin 40 Mg Tab PO 40 mg QHS MIC Administration Buspirone HCl 7.5 mg 04/15/21 22:00 04/19/21 10:05 Buspirone 5 Mg Tab PO 7.5 mg BID MIC Administration Divalproex Sodium 250 mg 04/15/21 10:00 04/19/21 10:[address] 250 Mg Tab PO 250 mg BID MIC Administration Escitalopram Oxalate 20 mg 04/16/21 10:00 04/19/21 10:05 Escitalopram 10 Mg Tab PO 20 mg QDAY MIC Administration Famotidine 20 mg 04/15/21 10:00 04/19/21 10:05 Famotidine 20 Mg Tab PO 20 mg DAILY MIC Administration Fenofibrate 48 mg 04/16/21 10:00 04/19/21 10:05 Fenofibrate 48 Mg Tab PO 48 mg DAILY MIC Administration Ferrous Sulfate 325 mg 04/15/21 10:00 04/19/21 10:05 Ferrous Sulfate 325 Mg Tab PO 325 mg DAILY MIC Administration Furosemide 20 mg 04/15/21 10:00 04/19/21 10:05 Furosemide 20 Mg Tab PO 20 mg QDAY MIC Administration Gabapentin 300 mg 04/15/21 14:00 04/19/21 14:43 Gabapentin 300 Mg Cap PO 300 mg TID MIC Administration Glipizide 10 mg 04/17/21 19:17 04/19/21 10:05 Glipizide 5 Mg Tab PO 10 mg BID MIC Administration Hydralazine HCl 10 mg 04/15/21 22:00 04/19/21 14:50 Hydralazine 10 Mg Tab PO 10 mg Q8HR MIC Administration Hydralazine HCl 10 mg 04/15/21 20:07 Hydralazine 10 Mg Tab PO Q4H PRN Hypertension Insulin Glargine 10 units 04/18/21 13:00 04/19/21 12:57 Insulin Glargine 100 Units/Ml SUB-Q Not Given BID MIC Insulin Human Lispro 0 unit 04/15/21 13:30 04/19/21 12:56 Insulin Lispro 100 Unit/Ml SUB-Q Not Given ACHS [facility] Protocol Lisinopril 5 mg 04/15/21 10:00 04/19/21 10:07 Lisinopril 5 Mg Tab PO 5 mg DAILY MIC Administration Melatonin 10 mg 04/15/21 22:00 04/18/21 21:49 Melatonin 5 Mg Tab PO 10 mg QHS MIC Administration Metoprolol Tartrate 50 mg 04/15/21 10:00 04/19/21 10:06 Metoprolol Tartrate 50 Mg Tab PO 50 mg BID MIC Administration Quetiapine Fumarate 50 mg 04/19/21 00:30 04/19/21 00:35 Quetiapine 25 Mg Tab PO 50 mg QHS MIC Administration Trazodone HCl 50 mg 04/15/21 22:00 04/19/21 00:15 Trazodone 50 Mg Tab PO 50 mg HS MIC Administration
[2021-04-19] MEDS: NON-FORMULARY EACH (Quetiapine Fumarate [Seroquel] 50 MG Tablet) PO SCH (19:48)
[2021-04-19] MEDS: MELATONIN 5 MG TAB PO SCH (21:11)
[2021-04-20] MEDS: hydrALAZINE 10 MG TAB PO SCH ×3 (06:11→21:02)
[2021-04-20] MEDS: INSULIN LISPRO 100 UNIT/ML SUB-Q SCH ×4 (07:46→22:25)
[2021-04-20] MEDS: GABAPENTIN 300 MG CAP PO SCH ×3 (07:47→19:46)
[2021-04-20] MEDS: glipiZIDE 5 MG TAB PO SCH ×2 (09:40→21:04)
[2021-04-20] MEDS: ASPIRIN 81 MG TAB CHEW PO SCH (09:40)
[2021-04-20] MEDS: busPIRone 5 MG TAB PO SCH ×2 (09:41→21:02)
[2021-04-20] MEDS: FERROUS SULFATE 325 MG TAB PO SCH (09:41)
[2021-04-20] MEDS: FUROSEMIDE 20 MG TAB PO SCH (09:41)
[2021-04-20] MEDS: FENOFIBRATE 48 MG TAB PO SCH (09:41)
[2021-04-20] MEDS: FAMOTIDINE 20 MG TAB PO SCH (09:41)
[2021-04-20] MEDS: APIXABAN 5 MG TAB PO SCH ×2 (09:41→21:04)
[2021-04-20] MEDS: METOPROLOL TARTRATE 50 MG TAB PO SCH ×2 (09:41→21:05)
[2021-04-20] MEDS: ESCITALOPRAM 10 MG TAB PO SCH (09:41)
[2021-04-20] MEDS: AMIODARONE 200 MG TAB PO SCH ×2 (09:41→21:03)
[2021-04-20] MEDS: DIVALPROEX DR 250 MG TAB PO SCH ×2 (09:41→21:04)
[2021-04-20] MEDS: LISINOPRIL 5 MG TAB PO SCH (09:42)
--- NOTE | 2021-04-20 10:16 | Discharge Summary ---
Providers - Providers Date of Admission: 04/15/21 04:44 Date of discharge: 04/20/21 Attending physician: FILOMENA VEGA MD 04/14/21 13:24 Consult to Physician [CONS] Routine Comment: Consulting Provider: HUGO SWEET Physician Instructions: Reason For Exam: manage existing medical conditions Primary care physician: FURNACE CHARGER Hospitalization Reason for admission: SI, depression Admitting Diagnosis: F20.9 - SCHIZOPHRENIA, UNSPECIFIED Condition: Stable Hospital course: The patient was provided inpatient psychiatric treatment with safe and supportive care, medication adjustment, adverse effect monitoring, medical evaluations, medical treatments, assessment and psycho-education. The patient's mood, cognition, behavior, moral support are improved and stabilized. St the time of discharge, the patient had no endangering behavior and no debilitating adverse effects. The patient agreed on potential consequences of no treatment and gave informed consent. Disposition: 01 HOME / SELF CARE / HOMELESS Time spent for discharge: 35 Allergies/Adverse Reactions: Allergies No Known Allergies Allergy (Unverified 04/15/21 05:52) Vital Signs: Last Vital Signs Temp 97.9 F 04/20/21 07:45 Pulse 60 04/20/21 09:42 Resp 18 04/20/21 07:45 BP 126/66 04/20/21 09:42 Pulse Ox 97 04/20/21 07:45 Last Lab: Laboratory Last Values WBC 5.0 K/mm3 (4.5-11.0) 04/19/21 07:26 RBC 3.87 M/mm3 (3.65-5.03) 04/19/21 07:26 Hgb 11.6 gm/dl (11.8-15.2) L 04/19/21 07:26 Hct 35.0 % (35.5-45.6) L 04/19/21 07:26 MCV 90 fl (84-94) 04/19/21 07:26 MCH 30 pg (28-32) 04/19/21 07:26 MCHC 33 % (32-34) 04/19/21 07:26 RDW 15.3 % (13.2-15.2) H 04/19/21 07:26 Plt Count 154 K/mm3 (140-440) 04/19/21 07:26 Lymph % (Auto) 30.4 % (13.4-35.0) 04/15/21 13:44 [place] % (Auto) 12.7 % (0.0-7.3) H 04/15/21 13:44 Eos % (Auto) 8.7 % (0.0-4.3) H 04/15/21 13:44 Baso % (Auto) 0.8 % (0.0-1.8) 04/15/21 13:44 Lymph # (Auto) 1.2 K/mm3 (1.2-5.4) 04/15/21 13:44 [place] # (Auto) 0.5 K/mm3 (0.0-0.8) 04/15/21 13:44 Eos # (Auto) 0.3 K/mm3 (0.0-0.4) 04/15/21 13:44 Baso # (Auto) 0.0 K/mm3 (0.0-0.1) 04/15/21 13:44 Seg Neutrophils % 47.4 % (40.0-70.0) 04/15/21 13:44 Seg Neutrophils # 1.8 K/mm3 (1.8-7.7) 04/15/21 13:44 PT 13.3 Sec. (12.2-14.9) 04/15/21 23:45 INR 0.96 (0.87-1.13) 04/15/21 23:45 APTT 26.7 Sec. (24.2-36.6) 04/15/21 23:45 Sodium 135 mmol/L (137-145) L 04/15/21 13:46 Potassium 5.3 mmol/L (3.6-5.0) H 04/18/21 08:54 Chloride 99.9 mmol/L (98-107) 04/15/21 13:46 Carbon Dioxide 26 mmol/L (22-30) 04/15/21 13:46 Anion Gap 15 mmol/L 04/15/21 13:46 BUN 30 mg/dL (9-20) H 04/15/21 13:46 Creatinine 1.7 mg/dL (0.8-1.3) H 04/18/21 08:54 Estimated GFR 51 ml/min 04/18/21 08:54 BUN/Creatinine Ratio 18 % 04/15/21 13:46 Glucose 348 mg/dL (75-100) H 04/15/21 13:46 POC Glucose 232 mg/dL (70-105) H 04/20/21 06:23 Hemoglobin A1c 9.2 % (4-6) H 04/15/21 13:46 Calcium 9.4 mg/dL (8.4-10.2) 04/15/21 13:46 Total Bilirubin < 0.20 mg/dL (0.1-1.2) 04/15/21 13:46 AST 16 units/L (5-40) 04/15/21 13:46 ALT 28 units/L (7-56) 04/15/21 13:46 Alkaline Phosphatase 104 units/L (35-129) 04/15/21 13:46 Total Protein 7.5 g/dL (6.3-8.2) 04/15/21 13:46 Albumin 4.1 g/dL (3.9-5) 04/15/21 13:46 Albumin/Globulin Ratio 1.2 % 04/15/21 13:46 Triglycerides 154 mg/dL (2-149) H 04/15/21 13:46 Cholesterol 163 mg/dL (50-199) 04/15/21 13:46 LDL Cholesterol Direct 104 mg/dL (50-130) 04/15/21 13:46 HDL Cholesterol 43 mg/dL (40-59) 04/15/21 13:46 Cholesterol/HDL Ratio 3.79 % 04/15/21 13:46 TSH 1.370 mlU/mL (0.270-4.200) 04/15/21 13:46 Hepatitis A IgM Ab Non-reactive (NonReactive) 04/15/21 13:46 Hep Bs Antigen Nonreactive (Negative) 04/15/21 13:46 Hep B Core IgM Ab Non-reactive (NonReactive) 04/15/21 13:46 Hepatitis C Antibody Non-reactive (NonReactive) 04/15/21 13:46 Core Measure Documentation - Palliative Care Palliative Care/ Comfort Measures: Not Applicable - Core Measures Any of the following diagnoses?: none Exam - Constitutional Vitals: Temp Pulse Resp BP Pulse Ox 97.9 F 60 18 126/66 97 04/20/21 07:45 04/20/21 09:42 04/20/21 07:45 04/20/21 09:42 04/20/21 07:45 General appearance: Present: no acute distress - EENT Eyes: Present: PERRL, EOM intact ENT: hearing intact, clear oral mucosa - Neck Neck: Present: supple, normal ROM - Respiratory Respiratory effort: normal Plan Activity: advance as tolerated Weight Bearing Status: Weight Bear as Tolerated Care Plan Goals: Maintain good and stable mental health Plan of Treatment: The patient should be compliant with medications, not to use drugs, and not to drink alcohol. The patient understands that if suicidal ideas, homicidal ideas or any endangering feeling arise, the patient should seek assistance including, but not limited to crisis hotline, and emergency room. Assessment: Schizophrenia Follow up with: PRIMARY CARE,MD [Primary Care Provider] - 7 Days Prescriptions: Melatonin [Melatonin 5MG TAB] 10 mg PO QHS #30 tablet busPIRone [Buspar] 7.5 mg PO BID #[address] [Depakote Dr] 250 mg PO BID #60 traZODone [Desyrel] 50 mg PO HS #30 tablet Escitalopram [Lexapro] 20 mg PO QDAY #60 tablet Quetiapine Fumarate [SEROquel] 50 mg PO HS #30
--- NOTE | 2021-04-20 10:38 | Progress Note ---
Subjective Date of service: 04/20/21 Principal diagnosis: schizophrenia Subjective Comment: The patient was seen today. He says he's not going good. He denies SI/HI or hallucinations of any kind. He is clear from a psych stand point. The pt is scheduled to be admitted to their program on 2020. clerical office worker confirmed the pt will have a psychiatrist onsite, Dr. Zavala and will be seen upon admission. Will reschedule discharge for tomorrow to ensue continuity of mental wellness and patient safety upon discharge. REVIEW OF SYSTEMS Constitutional: Negative for weight loss ENT: Negative for stridor Respiratory: Negative for cough or hemoptysis All other systems reviewed and are negative MENTAL STATUS EXAMINATION General Appearance and Behavior: Age appropriate, good hygiene, wearing appropriate clothes, fair eye contact Cooperation: Participating/engaged Psychomotor Behavior: Psychomotor normal Mood: "Depressed" Affect and affective range: Congruent to stated mood Thought Process: goal Directed Thought Content: SI, hopelessness Speech: normal tone and pace Suicidal Ideation: Yes Homicidal Ideation: Denies Hallucinations: Denies Impulse Control: Questionable Insight and Judgment: Limited insight and fair judgment Memory: Normal Attention: Normal Orientation: Alert and oriented Assessment and Plan (1) Schizophrenia-F20.9 Current Visit: Yes Status: Acute Treatment Plan Patient admitted for inpatient psychiatric evaluation, medication adjustment and close monitoring The patient's behavior, mood, sleep and appetite will be closely monitored. Patient enrolled in individual and group therapeutic sessions and encouraged to attend. Patient provided with a safe and structured environment. Patient's physical health needs will be addressed by the Hospitalist. Hospitalist Consulted Labs including CBC, CMP, Lipid profile and Hemoglobin A1C levels ordered for baseline reference Social Assessment will be completed and the Pipelayer will work with patient and family to ensure a suitable and safe disposition Medication adjustment will be made as clinically indicated No changes today Usual Wellness Worship/Preservation: - Start Trazodone 50 mg po QHS & 50 mg po QHS PRN between 10 PM & 2 AM for insomnia - Start Melatonin 5 mg po QHS to promote circadian rhythm The patient agreed on the treatment plan, understood the risk, benefit, alternative treatment, potential consequence of no treatment, and gave informed consent. Estimated days: 5 Post hospital care: primary care provider, psychiatric provider Case staffed with Dr. March Medications and Allergies Allergies Allergy/AdvReac Type Severity Reaction Status Date / Time No Known Allergies Allergy Unverified 04/15/21 05:52 Home Medications Medication Instructions Recorded Confirmed Last Taken Type Amiodarone [Cordarone 200 MG TAB] 200 mg PO BID 04/15/21 04/15/21 Unknown History Apixaban [Eliquis] 5 mg PO BID 04/15/21 04/15/21 Unknown History Aspirin 81 mg PO DAILY 04/15/21 04/15/21 Unknown History AtorvaSTATin [Lipitor] 40 mg PO QHS 04/15/21 04/15/21 Unknown History Famotidine [Acid-Pep] 20 mg PO DAILY 04/15/21 04/15/21 Unknown History Fenofibrate 54 mg PO DAILY 04/15/21 04/15/21 Unknown History Ferrous Sulfate [Feosol 325 MG tab] 325 mg PO DAILY 04/15/21 04/15/21 Unknown History Furosemide [Lasix TAB] 20 mg PO QDAY 04/15/21 04/15/21 Unknown History Gabapentin 300 mg PO TID 04/15/21 04/15/21 Unknown History Lisinopril [Zestril] 5 mg PO DAILY 04/15/21 04/15/21 Unknown History Metoprolol [Lopressor TAB] 50 mg PO BID 04/15/21 04/15/21 Unknown History glipiZIDE [Glucotrol] 5 mg PO QDAY 04/15/21 04/15/21 Unknown History Divalproex [Jordan Darnell] 250 mg PO BID #60 04/19/21 Unknown Rx Escitalopram [Lexapro] 20 mg PO QDAY #60 tablet 04/19/21 Unknown Rx Melatonin [Melatonin 5MG TAB] 10 mg PO QHS #30 tablet 04/19/21 Unknown Rx Quetiapine Fumarate [SEROquel] 50 mg PO HS #30 04/19/21 Unknown Rx busPIRone [Buspar] 7.5 mg PO BID #45 tablet 04/19/21 Unknown Rx traZODone [Desyrel] 50 mg PO HS #30 tablet 04/19/21 Unknown Rx Active Meds: Active Medications Amiodarone HCl (Amiodarone 200 Mg Tab) 200 mg PO BID [facility] Last Admin: 04/20/21 09:41 Dose: 200 mg Documented by: Apixaban (Apixaban 5 Mg Tab) 5 mg PO Q12HR MIC; Protocol Last Admin: 04/20/21 09:41 Dose: 5 mg Documented by: Aspirin (Aspirin 81 Mg Tab Chew) 81 mg PO QDAY [facility] Last Admin: 04/20/21 09:40 Dose: 81 mg Documented by: Atorvastatin Calcium (Atorvastatin 40 Mg Tab) 40 mg PO QHS [facility] Last Admin: 04/19/21 21:11 Dose: 40 mg Documented by: Buspirone HCl (Buspirone 5 Mg Tab) 7.5 mg PO BID [facility] Last Admin: 04/20/21 09:41 Dose: 7.5 mg Documented by: Divalproex Sodium (Divalproex Dr 250 Mg Tab) 250 mg PO BID [facility] Last Admin: 04/20/21 09:41 Dose: 250 mg Documented by: Escitalopram Oxalate (Escitalopram 10 Mg Tab) 20 mg PO QDAY [facility] Last Admin: 04/20/21 09:41 Dose: 20 mg Documented by: Famotidine (Famotidine 20 Mg Tab) 20 mg PO DAILY [facility] Last Admin: 04/20/21 09:41 Dose: 20 mg Documented by: Fenofibrate (Fenofibrate 48 Mg Tab) 48 mg PO DAILY [facility] Last Admin: 04/20/21 09:41 Dose: 48 mg Documented by: Ferrous Sulfate (Ferrous Sulfate 325 Mg Tab) 325 mg PO DAILY [facility] Last Admin: 04/20/21 09:41 Dose: 325 mg Documented by: Furosemide (Furosemide 20 Mg Tab) 20 mg PO QDAY [facility] Last Admin: 04/20/21 09:41 Dose: 20 mg Documented by: Gabapentin (Gabapentin 300 Mg Cap) 300 mg PO TID [facility] Last Admin: 04/20/21 07:47 Dose: 300 mg Documented by: Glipizide (Glipizide 5 Mg Tab) 10 mg PO BID [facility] Last Admin: 04/20/21 09:40 Dose: 10 mg Documented by: Hydralazine HCl (Hydralazine 10 Mg Tab) 10 mg PO Q8HR [facility] Last Admin: 04/20/21 06:11 Dose: 10 mg Documented by: Hydralazine HCl (Hydralazine 10 Mg Tab) 10 mg PO Q4H PRN PRN Reason: Hypertension Insulin Glargine (Insulin Glargine 100 Units/Ml) 15 units SUB-Q BID [facility] Last Admin: 04/19/21 21:15 Dose: 15 units Documented by: Insulin Human Lispro (Insulin Lispro 100 Unit/Ml) 0 unit SUB-Q ACHS [facility]; Protocol Last Admin: 04/20/21 07:46 Dose: 3 unit Documented by: Lisinopril (Lisinopril 5 Mg Tab) 5 mg PO DAILY [facility] Last Admin: 04/20/21 09:42 Dose: 5 mg Documented by: Melatonin (Melatonin 5 Mg Tab) 10 mg PO QHS [facility] Last Admin: 04/19/21 21:11 Dose: 10 mg Documented by: Metoprolol Tartrate (Metoprolol Tartrate 50 Mg Tab) 50 mg PO BID [facility] Last Admin: 04/20/21 09:41 Dose: 50 mg Documented by: Quetiapine Fumarate (Quetiapine 25 Mg Tab) 50 mg PO QHS [facility] Last Admin: 04/19/21 21:10 Dose: 50 mg Documented by: Trazodone HCl (Trazodone 50 Mg Tab) 50 mg PO HS [facility] Last Admin: 04/19/21 21:11 Dose: 50 mg Documented by: Results - Results Labs/Vitals: Laboratory Last Values WBC 5.0 K/mm3 (4.5-11.0) 04/19/21 07:26 RBC 3.87 M/mm3 (3.65-5.03) 04/19/21 07:26 Hgb 11.6 gm/dl (11.8-15.2) L 04/19/21 07:26 Hct 35.0 % (35.5-45.6) L 04/19/21 07:26 MCV 90 fl (84-94) 04/19/21 07:26 MCH 30 pg (28-32) 04/19/21 07:26 MCHC 33 % (32-34) 04/19/21 07:26 RDW 15.3 % (13.2-15.2) H 04/19/21 07:26 Plt Count 154 K/mm3 (140-440) 04/19/21 07:26 Lymph % (Auto) 30.4 % (13.4-35.0) 04/15/21 13:44 [place] % (Auto) 12.7 % (0.0-7.3) H 04/15/21 13:44 Eos % (Auto) 8.7 % (0.0-4.3) H 04/15/21 13:44 Baso % (Auto) 0.8 % (0.0-1.8) 04/15/21 13:44 Lymph # (Auto) 1.2 K/mm3 (1.2-5.4) 04/15/21 13:44 [place] # (Auto) 0.5 K/mm3 (0.0-0.8) 04/15/21 13:44 Eos # (Auto) 0.3 K/mm3 (0.0-0.4) 04/15/21 13:44 Baso # (Auto) 0.0 K/mm3 (0.0-0.1) 04/15/21 13:44 Seg Neutrophils % 47.4 % (40.0-70.0) 04/15/21 13:44 Seg Neutrophils # 1.8 K/mm3 (1.8-7.7) 04/15/21 13:44 PT 13.3 Sec. (12.2-14.9) 04/15/21 23:45 INR 0.96 (0.87-1.13) 04/15/21 23:45 APTT 26.7 Sec. (24.2-36.6) 04/15/21 23:45 Sodium 135 mmol/L (137-145) L 04/15/21 13:46 Potassium 5.3 mmol/L (3.6-5.0) H 04/18/21 08:54 Chloride 99.9 mmol/L (98-107) 04/15/21 13:46 Carbon Dioxide 26 mmol/L (22-30) 04/15/21 13:46 Anion Gap 15 mmol/L 04/15/21 13:46 BUN 30 mg/dL (9-20) H 04/15/21 13:46 Creatinine 1.7 mg/dL (0.8-1.3) H 04/18/21 08:54 Estimated GFR 51 ml/min 04/18/21 08:54 BUN/Creatinine Ratio 18 % 04/15/21 13:46 Glucose 348 mg/dL (75-100) H 04/15/21 13:46 POC Glucose 232 mg/dL (70-105) H 04/20/21 06:23 Hemoglobin A1c 9.2 % (4-6) H 04/15/21 13:46 Calcium 9.4 mg/dL (8.4-10.2) 04/15/21 13:46 Total Bilirubin < 0.20 mg/dL (0.1-1.2) 04/15/21 13:46 AST 16 units/L (5-40) 04/15/21 13:46 ALT 28 units/L (7-56) 04/15/21 13:46 Alkaline Phosphatase 104 units/L (35-129) 04/15/21 13:46 Total Protein 7.5 g/dL (6.3-8.2) 04/15/21 13:46 Albumin 4.1 g/dL (3.9-5) 04/15/21 13:46 Albumin/Globulin Ratio 1.2 % 04/15/21 13:46 Triglycerides 154 mg/dL (2-149) H 04/15/21 13:46 Cholesterol 163 mg/dL (50-199) 04/15/21 13:46 LDL Cholesterol Direct 104 mg/dL (50-130) 04/15/21 13:46 HDL Cholesterol 43 mg/dL (40-59) 04/15/21 13:46 Cholesterol/HDL Ratio 3.79 % 04/15/21 13:46 TSH 1.370 mlU/mL (0.270-4.200) 04/15/21 13:46 Hepatitis A IgM Ab Non-reactive (NonReactive) 04/15/21 13:46 Hep Bs Antigen Nonreactive (Negative) 04/15/21 13:46 Hep B Core IgM Ab Non-reactive (NonReactive) 04/15/21 13:46 Hepatitis C Antibody Non-reactive (NonReactive) 04/15/21 13:46 Last Vital Signs Temp 97.9 F 04/20/21 07:45 Pulse 60 04/20/21 09:42 Resp 18 04/20/21 07:45 BP 126/66 04/20/21 09:42 Pulse Ox 97 04/20/21 07:45
[2021-04-20] MEDS: INSULIN GLARGINE 100 UNITS/ML SUB-Q SCH ×2 (11:39→22:16)
--- NOTE | 2021-04-20 13:24 | Progress Note ---
Assessment and Plan - Patient Problems (1) Diabetes Current Visit: Yes Status: Acute Plan to address problem: Consistent carbohydrate diet, Accu-Chek, hypoglycemia protocol, insulin protocol. (2) Hypertension Current Visit: Yes Status: Acute Qualifiers: Hypertension type: primary hypertension Qualified Code(s): I10 - Essential (primary) hypertension Plan to address problem: Monitor blood pressure every shift, continue medical management (3) Atrial flutter Current Visit: Yes Status: Acute Plan to address problem: Therapeutic anticoagulation, rate control, (4) Hyperlipidemia Current Visit: Yes Status: Acute Qualifiers: Hyperlipidemia type: mixed hyperlipidemia Qualified Code(s): E78.2 - Mixed hyperlipidemia Plan to address problem: Low-cholesterol diet, risk factor reduction, (5) CHF (congestive heart failure) Current Visit: Yes Status: Acute Plan to address problem: Strict I/O, monitor urine output every shift, daily weight, afterload reduction, blood pressure control, outpatient cardiology follow-up. CHF currently compensated at this time. History Interval history: 55 YO Male with compensated CHF, HTN, Atrial Flutter on therapeutic anticoagulation, Diabetes, HLD. Patient convalesced well overnight. Patient noncompliant with consistent carbohydrate diet. No reported nursing events. P atient has pain. Hospitalist Physical - Constitutional Vitals: Temp Pulse Resp BP Pulse Ox 97.9 F 60 18 126/66 97 04/20/21 07:45 04/20/21 09:42 04/20/21 07:45 04/20/21 09:42 04/20/21 07:45 General appearance: Present: no acute distress - EENT Eyes: Present: PERRL, EOM intact ENT: hearing intact - Neck Neck: Present: supple - Respiratory Respiratory effort: normal Respiratory: bilateral: CTA - Cardiovascular Rhythm: irregularly irregular - Extremities Extremities: no ischemia Peripheral Pulses: within normal limits - Abdominal General gastrointestinal: soft, non-tender, non-distended - Integumentary Integumentary: Present: clear, dry - Psychiatric Psychiatric: cooperative - Neurologic Neurologic: CNII-XII intact Results - Labs CBC & Chem 7: 04/19/21 07:26 04/18/21 08:54 Labs: Laboratory Last Values WBC 5.0 K/mm3 (4.5-11.0) 04/19/21 07:26 RBC 3.87 M/mm3 (3.65-5.03) 04/19/21 07:26 Hgb 11.6 gm/dl (11.8-15.2) L 04/19/21 07:26 Hct 35.0 % (35.5-45.6) L 04/19/21 07:26 MCV 90 fl (84-94) 04/19/21 07:26 MCH 30 pg (28-32) 04/19/21 07: MCHC 33 % (32-34) 04/19/21 07:26 RDW 15.3 % (13.2-15.2) H 04/19/21 07:26 Plt Count 154 K/mm3 (140-440) 04/19/21 07:26 Lymph % (Auto) 30.4 % (13.4-35.0) 04/15/21 13:44 [place] % (Auto) 12.7 % (0.0-7.3) H 04/15/21 13:44 Eos % (Auto) 8.7 % (0.0-4.3) H 04/15/21 13:44 Baso % (Auto) 0.8 % (0.0-1.8) 04/15/21 13:44 Lymph # (Auto) 1.2 K/mm3 (1.2-5.4) 04/15/21 13:44 [place] # (Auto) 0.5 K/mm3 (0.0-0.8) 04/15/21 13:44 Eos # (Auto) 0.3 K/mm3 (0.0-0.4) 04/15/21 13:44 Baso # (Auto) 0.0 K/mm3 (0.0-0.1) 04/15/21 13:44 Seg Neutrophils % 47.4 % (40.0-70.0) 04/15/21 13:44 Seg Neutrophils # 1.8 K/mm3 (1.8-7.7) 04/15/21 13:44 PT 13.3 Sec. (12.2-14.9) 04/15/21 23:45 INR 0.96 (0.87-1.13) 04/15/21 23:45 APTT 26.7 Sec. (24.2-36.6) 04/15/21 23:45 Sodium 135 mmol/L (137-145) L 04/15/21 13:46 Potassium 5.3 mmol/L (3.6-5.0) H 04/18/21 08:54 Chloride 99.9 mmol/L (98-107) 04/15/21 13:46 Carbon Dioxide 26 mmol/L (22-30) 04/15/21 13:46 Anion Gap 15 mmol/L 04/15/21 13:46 BUN 30 mg/dL (9-20) H 04/15/21 13:46 Creatinine 1.7 mg/dL (0.8-1.3) H 04/18/21 08:54 Estimated GFR 51 ml/min 04/18/21 08:54 BUN/Creatinine Ratio 18 % 04/15/21 13:46 Glucose 348 mg/dL (75-100) H 04/15/21 13:46 POC Glucose 290 mg/dL (70-105) H 04/20/21 11:26 Hemoglobin A1c 9.2 % (4-6) H 04/15/21 13:46 Calcium 9.4 mg/dL (8.4-10.2) 04/15/21 13:46 Total Bilirubin < 0.20 mg/dL (0.1-1.2) 04/15/21 13:46 AST 16 units/L (5-40) 04/15/21 13:46 ALT 28 units/L (7-56) 04/15/21 13:46 Alkaline Phosphatase 104 units/L (35-129) 04/15/21 13:46 Total Protein 7.5 g/dL (6.3-8.2) 04/15/21 13:46 Albumin 4.1 g/dL (3.9-5) 04/15/21 13:46 Albumin/Globulin Ratio 1.2 % 04/15/21 13:46 Triglycerides 154 mg/dL (2-149) H 04/15/21 13:46 Cholesterol 163 mg/dL (50-199) 04/15/21 13:46 LDL Cholesterol Direct 104 mg/dL (50-130) 04/15/21 13:46 HDL Cholesterol 43 mg/dL (40-59) 04/15/21 13:46 Cholesterol/HDL Ratio 3.79 % 04/15/21 13:46 TSH 1.370 mlU/mL (0.270-4.200) 04/15/21 13:46 Hepatitis A IgM Ab Non-reactive (NonReactive) 04/15/21 13:46 Hep Bs Antigen Nonreactive (Negative) 04/15/21 13:46 Hep B Core IgM Ab Non-reactive (NonReactive) 04/15/21 13:46 Hepatitis C Antibody Non-reactive (NonReactive) 04/15/21 13:46 [place]/IV: Voiding Method Toilet Active Medications - Current Medications Current Medications: Generic Name Dose Route Start Last Admin Trade Name Bertha PRN Reason Stop Dose Admin Amiodarone HCl 200 mg 04/15/21 10:00 04/20/21 09:41 Amiodarone 200 Mg Tab PO 200 mg BID MIC Administration Apixaban 5 mg 04/15/21 14:00 04/20/21 09:41 Apixaban 5 Mg Tab PO 5 mg Q12HR MIC Administration Protocol Aspirin 81 mg 04/15/21 14:00 04/20/21 09:40 Aspirin 81 Mg Tab Chew PO 81 mg QDAY MIC Administration Atorvastatin Calcium 40 mg 04/15/21 22:00 04/19/21 21:11 Atorvastatin 40 Mg Tab PO 40 mg QHS MIC Administration Buspirone HCl 7.5 mg 04/15/21 22:00 04/20/21 09:41 Buspirone 5 Mg Tab PO 7.5 mg BID MIC Administration Divalproex Sodium 250 mg 04/15/21 10:00 04/20/21 09:[address] 250 Mg Tab PO 250 mg BID MIC Administration Escitalopram Oxalate 20 mg 04/16/21 10:00 04/20/21 09:41 Escitalopram 10 Mg Tab PO 20 mg QDAY MIC Administration Famotidine 20 mg 04/15/21 10:00 04/20/21 09:41 Famotidine 20 Mg Tab PO 20 mg DAILY MIC Administration Fenofibrate 48 mg 04/16/21 10:00 04/20/21 09:41 Fenofibrate 48 Mg Tab PO 48 mg DAILY MIC Administration Ferrous Sulfate 325 mg 04/15/21 10:00 04/20/21 09:41 Ferrous Sulfate 325 Mg Tab PO 325 mg DAILY MIC Administration Furosemide 20 mg 04/15/21 10:00 04/20/21 09:41 Furosemide 20 Mg Tab PO 20 mg QDAY MIC Administration Gabapentin 300 mg 04/15/21 14:00 04/20/21 07:47 Gabapentin 300 Mg Cap PO 300 mg TID MIC Administration Glipizide 10 mg 04/17/21 19:17 04/20/21 09:40 Glipizide 5 Mg Tab PO 10 mg BID MIC Administration Hydralazine HCl 10 mg 04/15/21 22:00 04/20/21 06:11 Hydralazine 10 Mg Tab PO 10 mg Q8HR MIC Administration Hydralazine HCl 10 mg 04/15/21 20:07 Hydralazine 10 Mg Tab PO Q4H PRN Hypertension Insulin Glargine 15 units 04/19/21 16:00 04/20/21 11:39 Insulin Glargine 100 Units/Ml SUB-Q 15 units BID MIC Administration Insulin Human Lispro 0 unit 04/15/21 13:30 04/20/21 11:39 Insulin Lispro 100 Unit/Ml SUB-Q 4 unit ACHS MIC Administration Protocol Lisinopril 5 mg 04/15/21 10:00 04/20/21 09:42 Lisinopril 5 Mg Tab PO 5 mg DAILY MIC Administration Melatonin 10 mg 04/15/21 22:00 04/19/21 21:11 Melatonin 5 Mg Tab PO 10 mg QHS MIC Administration Metoprolol Tartrate 50 mg 04/15/21 10:00 04/20/21 09:41 Metoprolol Tartrate 50 Mg Tab PO 50 mg BID MIC Administration Quetiapine Fumarate 50 mg 04/19/21 00:30 04/19/21 21:10 Quetiapine 25 Mg Tab PO 50 mg QHS MIC Administration Trazodone HCl 50 mg 04/15/21 22:00 04/19/21 21:11 Trazodone 50 Mg Tab PO 50 mg HS MIC Administration
[2021-04-20] MEDS: traZODone 50 MG TAB PO SCH (21:04)
[2021-04-20] MEDS: MELATONIN 5 MG TAB PO SCH (21:05)
[2021-04-20] MEDS: QUEtiapine 25 MG TAB PO SCH (21:06)
[2021-04-21] MEDS: hydrALAZINE 10 MG TAB PO SCH (05:55)
[2021-04-21 07:55] LABS: Hematocrit 34.1 % (35.5-45.6); Hemoglobin 11.4 gm/dl (11.8-15.2); Mean Corpuscular HGB Conc 33 % (32-34); Mean Corpuscular Volume 90 fl (84-94); Platelet Count 142 K/mm3 (140-440); Red Blood Count 3.81 M/mm3 (3.65-5.03); Red Cell Distribution Width 15.5 % (13.2-15.2)
[2021-04-21] MEDS: INSULIN LISPRO 100 UNIT/ML SUB-Q SCH (07:59)
[2021-04-21] MEDS: GABAPENTIN 300 MG CAP PO SCH (07:59)
[2021-04-21 08:14] VITALS: BP 84/46
--- NOTE | 2021-04-21 10:51 | Discharge Summary ---
Providers - Providers Date of Admission: 04/15/21 04:44 Date of discharge: 04/21/21 Attending physician: FILOMENA VEGA MD 04/14/21 13:24 Consult to Physician [CONS] Routine Comment: Consulting Provider: HUOG SWEET Physician Instructions: Reason For Exam: manage existing medical conditions Primary care physician: PRODUCT DEVELOPMENT DIRECTOR Hospitalization Reason for admission: depression Admitting Diagnosis: F20.9 - SCHIZOPHRENIA, UNSPECIFIED Hospital course: The patient was provided inpatient psychiatric treatment with safe and supportive care, medication adjustment, adverse effect monitoring, medical evaluations, medical treatments, assessment and psycho-education. The patient's mood, cognition, behavior, moral support are improved and stabilized. St the time of discharge, the patient had no endangering behavior and no debilitating adverse effects. The patient agreed on potential consequences of no treatment and gave informed consent. Disposition: 01 HOME / SELF CARE / HOMELESS Time spent for discharge: 35 Allergies/Adverse Reactions: Allergies No Known Allergies Allergy (Unverified 04/15/21 05:52) Vital Signs: Last Vital Signs Temp 98.2 F 04/21/21 07:46 Pulse 62 04/21/21 05:55 Resp 18 04/21/21 07:46 BP 84/46 04/21/21 07:46 Pulse Ox 98 04/21/21 05:53 Last Lab: Laboratory Last Values WBC 4.3 K/mm3 (4.5-11.0) L 04/21/21 07:31 RBC 3.81 M/mm3 (3.65-5.03) 04/21/21 07:31 Hgb 11.4 gm/dl (11.8-15.2) L 04/21/21 07:31 Hct 34.1 % (35.5-45.6) L 04/21/21 07:31 MCV 90 fl (84-94) 04/21/21 07:31 MCH 30 pg (28-32) 04/21/21 07:31 MCHC 33 % (32-34) 04/21/21 07:31 RDW 15.5 % (13.2-15.2) H 04/21/21 07:31 Plt Count 142 K/mm3 (140-440) 04/21/21 07:31 Lymph % (Auto) 30.4 % (13.4-35.0) 04/15/21 13:44 [place] % (Auto) 12.7 % (0.0-7.3) H 04/15/21 13:44 Eos % (Auto) 8.7 % (0.0-4.3) H 04/15/21 13:44 Baso % (Auto) 0.8 % (0.0-1.8) 04/15/21 13:44 Lymph # (Auto) 1.2 K/mm3 (1.2-5.4) 04/15/21 13:44 [place] # (Auto) 0.5 K/mm3 (0.0-0.8) 04/15/21 13:44 Eos # (Auto) 0.3 K/mm3 (0.0-0.4) 04/15/21 13:44 Baso # (Auto) 0.0 K/mm3 (0.0-0.1) 04/15/21 13:44 Seg Neutrophils % 47.4 % (40.0-70.0) 04/15/21 13:44 Seg Neutrophils # 1.8 K/mm3 (1.8-7.7) 04/15/21 13:44 PT 13.3 Sec. (12.2-14.9) 04/15/21 23:45 INR 0.96 (0.87-1.13) 04/15/21 23:45 APTT 26.7 Sec. (24.2-36.6) 04/15/21 23:45 Sodium 135 mmol/L (137-145) L 04/15/21 13:46 Potassium 5.3 mmol/L (3.6-5.0) H 04/18/21 08:54 Chloride 99.9 mmol/L (98-107) 04/15/21 13:46 Carbon Dioxide 26 mmol/L (22-30) 04/15/21 13:46 Anion Gap 15 mmol/L 04/15/21 13:46 BUN 30 mg/dL (9-20) H 04/15/21 13:46 Creatinine 2.2 mg/dL (0.8-1.3) H 04/21/21 07:31 Estimated GFR 38 ml/min 04/21/21 07:31 BUN/Creatinine Ratio 18 % 04/15/21 13:46 Glucose 348 mg/dL (75-100) H 04/15/21 13:46 POC Glucose 259 mg/dL (70-105) H 04/21/21 07:15 Hemoglobin A1c 9.2 % (4-6) H 04/15/21 13:46 Calcium 9.4 mg/dL (8.4-10.2) 04/15/21 13:46 Total Bilirubin < 0.20 mg/dL (0.1-1.2) 04/15/21 13:46 AST 16 units/L (5-40) 04/15/21 13:46 ALT 28 units/L (7-56) 04/15/21 13:46 Alkaline Phosphatase 104 units/L (35-129) 04/15/21 13:46 Total Protein 7.5 g/dL (6.3-8.2) 04/15/21 13:46 Albumin 4.1 g/dL (3.9-5) 04/15/21 13:46 Albumin/Globulin Ratio 1.2 % 04/15/21 13:46 Triglycerides 154 mg/dL (2-149) H 04/15/21 13:46 Cholesterol 163 mg/dL (50-199) 04/15/21 13:46 LDL Cholesterol Direct 104 mg/dL (50-130) 04/15/21 13:46 HDL Cholesterol 43 mg/dL (40-59) 04/15/21 13:46 Cholesterol/HDL Ratio 3.79 % 04/15/21 13:46 TSH 1.370 mlU/mL (0.270-4.200) 04/15/21 13:46 Hepatitis A IgM Ab Non-reactive (NonReactive) 04/15/21 13:46 Hep Bs Antigen Nonreactive (Negative) 04/15/21 13:46 Hep B Core IgM Ab Non-reactive (NonReactive) 04/15/21 13:46 Hepatitis C Antibody Non-reactive (NonReactive) 04/15/21 13:46 Core Measure Documentation - Palliative Care Palliative Care/ Comfort Measures: Not Applicable - Core Measures Any of the following diagnoses?: none Exam - Constitutional Vitals: Temp Pulse Resp BP Pulse Ox 98.2 F 62 18 84/46 98 04/21/21 07:46 04/21/21 05:55 04/21/21 07:46 04/21/21 07:46 04/21/21 05:53 General appearance: Present: no acute distress - EENT Eyes: Present: PERRL, EOM intact ENT: hearing intact, clear oral mucosa - Neck Neck: Present: supple, normal ROM Plan Activity: advance as tolerated Weight Bearing Status: Weight Bear as Tolerated Care Plan Goals: Maintain good and stable mental health Plan of Treatment: The patient should be compliant with medications, not to use drugs, and not to drink alcohol. The patient understands that if suicidal ideas, homicidal ideas or any endangering feeling arise, the patient should seek assistance including, but not limited to crisis hotline, and emergency room. Assessment: Schizophrenia Follow up with: PRIMARY CARE,MD [Primary Care Provider] - 7 Days Prescriptions: Melatonin [Melatonin 5MG TAB] 10 mg PO QHS #30 tablet busPIRone [Buspar] 7.5 mg PO BID #[address] [Depakote Dr] 250 mg PO BID #60 traZODone [Desyrel] 50 mg PO HS #30 tablet Escitalopram [Lexapro] 20 mg PO QDAY #60 tablet Quetiapine Fumarate [SEROquel] 50 mg PO HS #30
== END 2021-04-21 09:10 | disposition home or self-care (01) | DRG 885 ==
LOC: UNDOADMIN 13:08 → 3A 13:08 → 5A 04-15 04:44
PROVIDERS: ADMIT Psychiatry & Neurology Psychiatry; ATTEND Psychiatry & Neurology Psychiatry
DX: F20.9 Schizophrenia, unspecified (principal); I50.9 Heart failure, unspecified; I11.0 Hypertensive heart disease with heart failure; I25.10 Atherosclerotic heart disease of native coronary artery without angina pectoris; Z20.822 Contact with and (suspected) exposure to COVID-19; E78.5 Hyperlipidemia, unspecified; E87.5 Hyperkalemia; E11.40 Type 2 diabetes mellitus with diabetic neuropathy, unspecified; N17.0 Acute kidney failure with tubular necrosis
CPT/HCPCS: 36415; 80053; 80061; 80074; 82565; 82962; 83036; 84132; 84443; 85025; 85027; 85610; 85730; G0378; J1815